=== PATIENT | female | born 1985 | race Caucasian/White ===

== ENCOUNTER → 2016-08-13 | Outpatient (CLI) | payer BC ==
[2016-08-13 09:07] LABS: ABSOLUTE EOSINOPHILS # (AUTO) 0.1 10^3/uL (0.0-0.6); ABSOLUTE MONOCYTES (AUTO) 0.4 10^3/uL (0.1-1.4); ABSOLUTE NEUT (AUTO) 3.8 10^3/uL (1.7-8.2); BASOPHILS % (AUTO) 0.6 % (0-2); EOSINOPHILS % (AUTO) 1.3 % (0-6); HEMATOCRIT 37.5 % (36.0-47.0); HGB HCT DIFFERENCE 1.5; LYMPHOCYTES % (AUTO) 31.5 % (13-45); MEAN CORPUSCULAR HEMOGLOBIN 28.5 pg (27.0-33.4); MEAN CORPUSCULAR HGB CONC 34.5 g/dL (32.0-36.0); MEAN CORPUSCULAR VOLUME 83 fl (80-97); RED BLOOD COUNT 4.55 10^6/uL (3.72-5.28); RED CELL DISTRIBUTION WIDTH 13.9 % (11.5-14.0); SEGMENTED NEUTROPHILS % (AUTO) 60.6 % (42-78); WHITE BLOOD COUNT 6.2 10^3/uL (4.0-10.5)
[2016-08-13 09:26] LABS: ALANINE AMINOTRANSFERASE 45 U/L (9-52); ALBUMIN 4.2 g/dL (3.5-5.0); ALKALINE PHOSPHATASE 82 U/L (38-126); ANION GAP 13 (5-19); ASPARTATE AMINO TRANSFERASE 29 U/L (14-36); BILIRUBIN,TOTAL 0.5 mg/dL (0.2-1.3); BLOOD UREA NITROGEN 11 mg/dL (7-20); CALCIUM 9.5 mg/dL (8.4-10.2); CARBON DIOXIDE 24 mmol/L (22-30); CHLORIDE 104 mmol/L (98-107); CREATININE RESULT 0.59 mg/dL (0.52-1.25); GLUCOSE 103 mg/dL (75-110); MAGNESIUM 1.7 mg/dL (1.6-2.3); PHOSPHORUS 3.5 mg/dL (2.5-4.5); POTASSIUM 4.2 mmol/L (3.6-5.0); SODIUM 141.1 mmol/L (137-145); TOTAL PROTEIN 7.4 g/dL (6.3-8.2)
[2016-08-13 10:06] LABS: THYROID STIMULATING HORMONE 2.19 uIU/mL (0.47-4.68)
[2016-08-14 07:11] LABS: VITAMIN D 25-HYDROXY 21.3 ng/mL (30.0-100.0)
[2016-08-14 13:54] LABS: ADRENOCORTICOTROPIC HORMONE 36.9 pg/mL (7.2-63.3)
== END ==
LOC: LAB 08:46
PROVIDERS: ATTEND Physician Assistant
DX: R53.83 Other fatigue (principal); R63.5 Abnormal weight gain
CPT/HCPCS: 36415; 80053; 82024; 82306; 82533; 82746; 83735; 84100; 84439; 84443; 85025

== ENCOUNTER → 2016-11-26 | Outpatient (CLI) | payer BC ==
[2016-11-28 23:36] LABS: AFP MOM 1.74 (.); AFP VALUE 61.4 ng/mL (.); MULTIPLE GESTATION No (.)
[2016-11-29 08:22] LABS: GEST AGE BASED ON EDD (.)
== END ==
LOC: LAB 13:24
PROVIDERS: ATTEND Midwife
DX: Z36 Encounter for antenatal screening of mother (principal)
CPT/HCPCS: 36415; 82105

== ENCOUNTER 2017-01-11 09:27 | Outpatient (CLI) | payer BC, MEDICAID ==
[2017-01-11 10:51] LABS: APPEARANCE,URINE SLIGHTLY-CLOUDY; BILIRUBIN,URINE NEGATIVE (NEGATIVE); GLUCOSE, URINE NEGATIVE (NEGATIVE); KETONES,URINE TRACE mg/dL (NEGATIVE); LEUKOCYTE ESTERASE,URINE NEGATIVE (NEGATIVE); NITRITE,URINE NEGATIVE (NEGATIVE); PROTEIN,URINE NEGATIVE (NEGATIVE); URINE SPECIFIC GRAVITY 1.018; UROBILINOGEN,URINE NEGATIVE mg/dL (<2.0)
[2017-01-11 11:02] LABS: URINE BARBITURATES SCREEN NEGATIVE; URINE METHADONE SCREEN NEGATIVE; URINE OPIATES LOW NEGATIVE; URINE PHENCYCLIDINE SCREEN NEGATIVE
== END 2017-01-11 10:25 | disposition home or self-care (01) ==
LOC: LC 09:27
PROVIDERS: ATTEND Specialist
DX: O99.512 Diseases of the respiratory system complicating pregnancy, second trimester (principal); J06.9 Acute upper respiratory infection, unspecified; Z3A.21 21 weeks gestation of pregnancy
CPT/HCPCS: 80307; 81001

== ENCOUNTER 2017-02-14 09:23 | Emergency (ER) | payer BC, MEDICAID ==
--- NOTE | 2017-02-14 09:45 | ER Document Report ---
ED Medical Screen (RME) - General Chief Complaint: OB Problem (>20wk) Stated Complaint: LEG SWELLING Time Seen by Provider: 02/14/17 09:43 Mode of Arrival: Ambulatory Information source: Patient Notes: This is a 31-year-old female 4 para 3, 30 weeks presents to the emergency room with palpitations, backache, dizziness and dyspnea on exertion. Patient does state she has a history of anxiety attacks but this feels different than previous attacks. Patient was referred to the emergency room by Dr. Yates because of concerns for pulmonary embolism. Denies any pain to the calves bilaterally TRAVEL OUTSIDE OF THE [place] IN LAST 30 DAYS: No - Related Data Allergies/Adverse Reactions: No Known Allergies Allergy (Verified 02/14/17 09:28) Past Medical History Renal/ Medical History: Denies: Hx Peritoneal Dialysis Past Surgical History: Reports: Hx Gynecologic Surgery - d&c - Immunizations Hx Diphtheria, Pertussis, Tetanus Vaccination: Yes Physical Exam - Vital signs Vitals: Temp Pulse Resp BP Pulse Ox 98.4 F 115 H 16 131/88 H 99 02/14/17 09:29 02/14/17 09:29 02/14/17 09:29 02/14/17 09:29 02/14/17 09:29 Course - Vital Signs Vital signs: Temp Pulse Resp BP Pulse Ox 98.4 F 115 H 16 131/88 H 99 02/14/17 09:29 02/14/17 09:29 02/14/17 09:29 02/14/17 09:29 02/14/17 09:29
[2017-02-14 10:10] LABS: ABSOLUTE EOSINOPHILS # (AUTO) 0.1 10^3/uL (0.0-0.6); ABSOLUTE MONOCYTES (AUTO) 0.8 10^3/uL (0.1-1.4); ABSOLUTE NEUT (AUTO) 6.5 10^3/uL (1.7-8.2); BASOPHILS % (AUTO) 0.2 % (0-2); EOSINOPHILS % (AUTO) 0.8 % (0-6); HEMATOCRIT 32.1 % (36.0-47.0); HEMOGLOBIN 10.6 g/dL (12.0-15.5); HGB HCT DIFFERENCE -0.3; LYMPHOCYTES % (AUTO) 21.8 % (13-45); MEAN CORPUSCULAR HEMOGLOBIN 26.2 pg (27.0-33.4); MEAN CORPUSCULAR HGB CONC 33.1 g/dL (32.0-36.0); MEAN CORPUSCULAR VOLUME 79 fl (80-97); MONOCYTES % (AUTO) 8.2 % (3-13); RED BLOOD COUNT 4.06 10^6/uL (3.72-5.28); RED CELL DISTRIBUTION WIDTH 13.6 % (11.5-14.0); WHITE BLOOD COUNT 9.4 10^3/uL (4.0-10.5)
--- NOTE | 2017-02-14 10:20 | ER Document Report ---
ED General - General Chief Complaint: OB Problem (>20wk) Stated Complaint: LEG SWELLING Time Seen by Provider: 02/14/17 09:43 Mode of Arrival: Ambulatory Information source: Patient, Dr. Office Notes: 31 yr old female who is 28 weeks presents with complaitns of anxiety heart racing and bvilateral edema. pt denies any sob, chest pain. denies hx of dvt or pe. TRAVEL OUTSIDE OF THE [place] IN LAST 30 DAYS: No - HPI Onset: Last week Onset/Duration: Persistent Quality of pain: No pain Severity: Mild Pain Level: Denies Associated symptoms: Shortness of breath Exacerbated by: Denies Relieved by: Denies Similar symptoms previously: No Recently seen / treated by doctor: Yes - Dr Santana sent patient in - Related Data Allergies/Adverse Reactions: No Known Allergies Allergy (Verified 02/14/17 09:28) Past Medical History - General Information source: Patient - Social History Smoking Status: Never Smoker Cigarette use (# per day): No Chew tobacco use (# tins/day): No Smoking Education Provided: No Family History: Reviewed & Not Pertinent Patient has suicidal ideation: No Patient has homicidal ideation: No Renal/ Medical History: Denies: Hx Peritoneal Dialysis Past Surgical History: Reports: Hx Gynecologic Surgery - d&c - Immunizations Hx Diphtheria, Pertussis, Tetanus Vaccination: Yes Review of Systems - Review of Systems Notes: REVIEW OF SYSTEMS: CONSTITUTIONAL : Denies fever, chills, or sweats. Denies recent illness. EENT: Denies eye, ear, throat, or mouth pain or symptoms. Denies nasal or sinus congestion or discharge. Denies throat, tongue, or mouth swelling or difficulty swallowing. CARDIOVASCULAR: Denies chest pain. Denies palpitations or racing or irregular heart beat. Denies ankle edema. RESPIRATORY: Denies cough, cold, or chest congestion. Denies shortness of breath, difficulty breathing, or wheezing. GASTROINTESTINAL: Denies abdominal pain or distention. Denies nausea, vomiting , or diarrhea. Denies blood in vomitus, stools, or per rectum. Denies black, tarry stools. Denies constipation. GENITOURINARY: Denies difficulty urinating, painful urination, burning, frequency, blood in urine, or discharge. FEMALE GENITOURINARY: Denies vaginal bleeding, heavy or abnormal periods, irregular periods. Denies vaginal discharge or odor. MUSCULOSKELETAL: Ankle swelling SKIN: Denies rash, lesions or sores. HEMATOLOGIC : Denies easy bruising or bleeding. LYMPHATIC: Denies swollen, enlarged glands. NEUROLOGICAL: Denies confusion or altered mental status. Denies passing out or loss of consciousness. Denies dizziness or lightheadedness. Denies headache. Denies weakness or paralysis or loss of use of either side. Denies problems with gait or speech. Denies sensory loss, numbness, or tingling. Denies seizures. PSYCHIATRIC: Denies anxiety or stress. Denies depression, suicidal ideation, or homicidal ideation. ALL OTHER SYSTEMS REVIEWED AND NEGATIVE. PHYSICAL EXAMINATION: GENERAL: Well-appearing, well-nourished and in no acute distress. HEAD: Atraumatic, normocephalic. EYES: Pupils equal round and reactive to light, extraocular movements intact, conjunctiva are normal. ENT: Nares patent, oropharynx clear without exudates. Moist mucous membranes. NECK: Normal range of motion, supple without lymphadenopathy LUNGS: Breath sounds clear to auscultation bilaterally and equal. No wheezes rales or rhonchi. HEART: Tachycardic ABDOMEN: Soft, nontender, nondistended abdomen. No guarding, no rebound. No masses appreciated. Female : deferred Musculoskeletal:+1 nonpitting edema bilateral ankles NEUROLOGICAL: Cranial nerves grossly intact. Normal speech, normal gait. Normal sensory, motor exams PSYCH: Anxious SKIN: Warm, Dry, normal turgor, no rashes or lesions noted. Dictation was performed using [employer] voice recognition software Physical Exam - Vital signs Vitals: Temp Pulse Resp BP Pulse Ox 98.4 F 115 H 16 131/88 H 99 02/14/17 09:29 02/14/17 09:29 02/14/17 09:29 02/14/17 09:29 02/14/17 09:29 Course - Re-evaluation Re-evalutation: 02/14/17 10:18 Patient appears to be tachycardic and having edema secondary to her , I have extremely low suspicion for a pulmonary emboli however her MANAGER MAIL sent the patient in to be evaluated for such therefore a CTA has been ordered, risks and benefits of this procedure have been explained to the patient 02/14/17 11:13 CTA was negative, I will discharge patient home at this time she is otherwise stable blood pressures not elevated very strict return precautions have been provided After performing a Medical Screening Examination, I estimate there is LOW risk for RUPTURED ESOPHAGUS, PNEUMOTHORAX, PULMONARY EMBOLISM, ACUTE CORONARY SYNDROME, OR THORACIC AORTIC DISSECTION, thus I consider the discharge disposition reasonable. I have reevaluated this patient multiple times and no significant life threatening changes are noted. The patient and I have discussed the diagnosis and risks, and we agree with discharging home with close follow-up. We also discussed returning to the Emergency Department immediately if new or worsening symptoms occur. We have discussed the symptoms which are most concerning (e.g., bloody sputum, worsening pain or shortness of breath) that necessitate immediate return. - Vital Signs Vital signs: Temp Pulse Resp BP Pulse Ox 98.4 F 115 H 16 131/88 H 99 02/14/17 09:29 02/14/17 09:29 02/14/17 09:29 02/14/17 09:29 02/14/17 09:29 - Laboratory Result Diagrams: 02/14/17 09:59 02/14/17 09:59 Laboratory results interpreted by me: 02/14/17 02/14/17 02/14/17 09:59 09:59 09:59 Hgb 10.6 L Hct 32.1 L MCV 79 L MCH 26.2 L Chloride 108 H Carbon Dioxide 19 L BUN 3 L Creatinine 0.44 L Free T4 0.72 L - Diagnostic Test Radiology reviewed: Image reviewed, Reports reviewed - no Acute abnormality Discharge - Discharge Clinical Impression: Tachycardia, Ankle edema in Condition: Stable Disposition: HOME, SELF-CARE Additional Instructions: Follow up with your physician tomorrow for further care or return to the ED IMMEDIATELY if symptoms worsen or new concerns occur. If you cannot afford to follow up with your primary care physician a list of low cost clinics have been provided at the end of your discharge papers as well. Referrals: SAMRA SANTANA MD [Primary Care Provider] - Follow up tomorrow
[2017-02-14 10:38] LABS: ALANINE AMINOTRANSFERASE 20 U/L (9-52); ALBUMIN 3.5 g/dL (3.5-5.0); ALKALINE PHOSPHATASE 105 U/L (38-126); ANION GAP 11 (5-19); ASPARTATE AMINO TRANSFERASE 15 U/L (14-36); BILIRUBIN,DIRECT 0.3 mg/dL (0.0-0.4); BILIRUBIN,TOTAL 0.3 mg/dL (0.2-1.3); BLOOD UREA NITROGEN 3 mg/dL (7-20); CALCIUM 8.6 mg/dL (8.4-10.2); CARBON DIOXIDE 19 mmol/L (22-30); CHLORIDE 108 mmol/L (98-107); CREATININE RESULT 0.44 mg/dL (0.52-1.25); GLUCOSE 78 mg/dL (75-110); POTASSIUM 4.1 mmol/L (3.6-5.0); SODIUM 137.6 mmol/L (137-145); TOTAL PROTEIN 6.8 g/dL (6.3-8.2)
--- NOTE | 2017-02-14 11:05 | RADIOLOGY REPORT (SQ) ---
EXAM DESCRIPTION: CTA CHEST COMPLETED DATE/TIME: 02/14/2017 10:45 am REASON FOR STUDY: tachy, , glover, r/o pe 28 weeks. Patient shielded. COMPARISON: None. TECHNIQUE: CT scan of the chest performed using helical scanning technique with dynamic intravenous contrast injection. Images reviewed with lung, soft tissue and bone windows. Reconstructed coronal and sagittal MPR images reviewed. Additional 3 dimensional post-processing performed to develop Maximal Intensity Projection images (GA P). All images stored on PACS. All CT scanners at this facility use dose modulation, iterative reconstruction, and/or weight based d osing when appropriate to reduce radiation dose to as low as reasonably achievable (ALARA). [facility]: Dose Right [facility]: CareDose [facility]: Dose Right [facility]: Teradose 4D [facility]: [employer] CONTRAST TYPE AND DOSE: contrast/concentration: Isovue 370.00 mg/ml; Total Contrast Delivered: 71.0 ml; Total Saline Delivered: 94.1 ml 71 mL Isovue 370 intravenously. RENAL FUNCTION: Not required for younger patients. RADIATION DOSE: Up-to-date CT equipment and radiation dose reduction techniques were employed. CTDIv ol: 13.2 - 19.2 mGy. DLP: 577 mGy-cm. . LIMITATIONS: None. FINDINGS: LUNGS AND PLEURA: No masses, infiltrates, pneumothorax. No pleural effusions, calcificati ons. AORTA AND GREAT VESSELS: No aneurysm or dissection. HEART: No pericardial effusion. PULMONARY ARTERIES: No emboli visualized in the main pulmonary arteries or the segmental branches. HILAR AND MEDIASTINAL STRUCTURES: No identified masses or abnormal nodes. HARDWARE: None in the chest. UPPER ABDOMEN: No significant findings. Limited exam. THYROID AND OTHER SOFT TISSUES: No masses. No adenopathy. BONES: No acute or significant finding. 3D MIPS: Confirm above findings. OTHER: No other significant finding. IMPRESSION: Nothing acute. No evidence for central pulmonary embolus by CT. TECHNICAL DOCUMENTATION: JOB ID: [id number] Quality ID # [id number]: Final reports with documentation of one or more dose reduction techniques (e.g., Au tomated exposure control, adjustment of the mA and/or kV according to patient size, use of iterative reconstruction technique) 2010 [employer]- All Rights Reserved
[2017-02-14 11:08] LABS: THYROID STIMULATING HORMONE 1.58 uIU/mL (0.47-4.68)
[2017-02-14 11:27] VITALS: BP 122/77
== END 2017-02-14 11:27 | disposition home or self-care (01) ==
LOC: ER 09:23
DX: O26.93 Pregnancy related conditions, unspecified, third trimester (principal); R00.0 Tachycardia, unspecified; O12.02 Gestational edema, second trimester; Z3A.28 28 weeks gestation of pregnancy
CPT/HCPCS: 36415; 71275; 80053; 84439; 84443; 85025; 99284

== ENCOUNTER → 2017-02-26 | Outpatient (CLI) | payer BC, MEDICAID | LOC: LAB 15:21 | PROVIDERS: ATTEND Midwife | DX: Z34.83 Encounter for supervision of other normal pregnancy, third trimester (principal) | CPT/HCPCS: 36415; 86592 ==

== ENCOUNTER 2017-04-02 12:00 | Outpatient (CLI) | payer BC, MEDICAID ==
[2017-04-02 12:58] LABS: APPEARANCE,URINE SLIGHTLY-CLOUDY; BILIRUBIN,URINE NEGATIVE (NEGATIVE); GLUCOSE, URINE NEGATIVE (NEGATIVE); KETONES,URINE 80 mg/dL (NEGATIVE); LEUKOCYTE ESTERASE,URINE NEGATIVE (NEGATIVE); NITRITE,URINE NEGATIVE (NEGATIVE); PROTEIN,URINE NEGATIVE (NEGATIVE); URINE SPECIFIC GRAVITY 1.009; UROBILINOGEN,URINE NEGATIVE mg/dL (<2.0)
[2017-04-02 13:23] LABS: URINE BARBITURATES SCREEN NEGATIVE; URINE METHADONE SCREEN NEGATIVE; URINE OPIATES LOW NEGATIVE; URINE PHENCYCLIDINE SCREEN NEGATIVE
== END 2017-04-02 13:08 | disposition home or self-care (01) ==
LOC: LC 12:00
PROVIDERS: ATTEND Specialist
PROC: 4A1HXCZ Monitoring of Products of Conception, Cardiac Rate, External Approach (ICD-10-PCS; principal; 2017-04-02)
DX: O26.893 Other specified pregnancy related conditions, third trimester (principal); Z3A.35 35 weeks gestation of pregnancy
CPT/HCPCS: 59025; 80307; 81001

== ENCOUNTER 2017-04-05 14:18 | Outpatient (CLI) | payer BC, MEDICAID | END 2017-04-05 15:38 | disposition home or self-care (01) | LOC: LC 14:18 | PROVIDERS: ATTEND Specialist | PROC: 4A1HXCZ Monitoring of Products of Conception, Cardiac Rate, External Approach (ICD-10-PCS; principal; 2017-04-05) | DX: O26.893 Other specified pregnancy related conditions, third trimester (principal); B02.9 Zoster without complications; Z3A.35 35 weeks gestation of pregnancy | CPT/HCPCS: 59025 ==

== ENCOUNTER → 2017-04-18 | Outpatient (CLI) | payer BC, MEDICAID ==
[2017-04-18 11:21] LABS: ABSOLUTE EOSINOPHILS # (AUTO) 0.1 10^3/uL (0.0-0.6); ABSOLUTE LYMPHOCYTES (AUTO) 1.9 10^3/uL (0.5-4.7); ABSOLUTE MONOCYTES (AUTO) 0.7 10^3/uL (0.1-1.4); ABSOLUTE NEUT (AUTO) 5.5 10^3/uL (1.7-8.2); BASOPHILS % (AUTO) 0.2 % (0-2); EOSINOPHILS % (AUTO) 0.7 % (0-6); HEMATOCRIT 33.5 % (36.0-47.0); HEMOGLOBIN 11.3 g/dL (12.0-15.5); HGB HCT DIFFERENCE 0.4; LYMPHOCYTES % (AUTO) 23.3 % (13-45); MEAN CORPUSCULAR HEMOGLOBIN 26.1 pg (27.0-33.4); MEAN CORPUSCULAR HGB CONC 33.6 g/dL (32.0-36.0); MEAN CORPUSCULAR VOLUME 78 fl (80-97); MONOCYTES % (AUTO) 8.6 % (3-13); RED BLOOD COUNT 4.31 10^6/uL (3.72-5.28); RED CELL DISTRIBUTION WIDTH 16.9 % (11.5-14.0); SEGMENTED NEUTROPHILS % (AUTO) 67.2 % (42-78); WHITE BLOOD COUNT 8.2 10^3/uL (4.0-10.5)
[2017-04-18 11:36] LABS: ALANINE AMINOTRANSFERASE 20 U/L (9-52); ALBUMIN 3.4 g/dL (3.5-5.0); ALKALINE PHOSPHATASE 159 U/L (38-126); ANION GAP 11 (5-19); ASPARTATE AMINO TRANSFERASE 16 U/L (14-36); BILIRUBIN,DIRECT 0.3 mg/dL (0.0-0.4); BILIRUBIN,TOTAL 0.3 mg/dL (0.2-1.3); BLOOD UREA NITROGEN 5 mg/dL (7-20); CALCIUM 9.4 mg/dL (8.4-10.2); CARBON DIOXIDE 22 mmol/L (22-30); CHLORIDE 105 mmol/L (98-107); CREATININE RESULT 0.43 mg/dL (0.52-1.25); GLUCOSE 91 mg/dL (75-110); LDH 485 U/L (313-618); SODIUM 137.8 mmol/L (137-145); TOTAL PROTEIN 6.2 g/dL (6.3-8.2); URIC ACID 3.4 mg/dL (2.5-6.2)
[2017-04-18 12:13] LABS: URINE PROTEIN 11.1 mg/dL (<12)
== END ==
LOC: OD 10:22
PROVIDERS: ATTEND Midwife
DX: O13.9 Gestational [pregnancy-induced] hypertension without significant proteinuria, unspecified trimester (principal)
CPT/HCPCS: 36415; 80053; 83615; 84156; 84550; 85025

== ENCOUNTER 2017-04-22 06:27 | Inpatient (IN) | payer BC, MEDICAID ==
[2017-04-22] MEDS ORDERED: OXYTOCIN/NORMAL SALINE 20,000 UNIT/1,000,000 ML RTUINJ IV PRN (06:37)
[2017-04-22] MEDS ORDERED: RINGERS SOLUTION,LACTATED 300 ML IV ONE (06:37)
[2017-04-22] MEDS ORDERED: RINGERS SOLUTION,LACTATED 1,000 ML IV PRN (06:37)
[2017-04-22] MEDS ORDERED: PENICILLIN G POTASSIUM 5,000,000 UNIT in DEXTROSE 5%-WATER 100 ML IV ONE (06:39)
[2017-04-22 07:03] LABS: ABSOLUTE EOSINOPHILS # (AUTO) 0.1 10^3/uL (0.0-0.6); ABSOLUTE LYMPHOCYTES (AUTO) 2.7 10^3/uL (0.5-4.7); ABSOLUTE MONOCYTES (AUTO) 0.8 10^3/uL (0.1-1.4); ABSOLUTE NEUT (AUTO) 4.7 10^3/uL (1.7-8.2); BASOPHILS % (AUTO) 0.5 % (0-2); EOSINOPHILS % (AUTO) 1.2 % (0-6); HEMATOCRIT 32.8 % (36.0-47.0); HEMOGLOBIN 10.9 g/dL (12.0-15.5); HGB HCT DIFFERENCE -0.1; LYMPHOCYTES % (AUTO) 32.5 % (13-45); MEAN CORPUSCULAR HEMOGLOBIN 25.7 pg (27.0-33.4); MEAN CORPUSCULAR HGB CONC 33.4 g/dL (32.0-36.0); MEAN CORPUSCULAR VOLUME 77 fl (80-97); MONOCYTES % (AUTO) 9.5 % (3-13); RED BLOOD COUNT 4.26 10^6/uL (3.72-5.28); SEGMENTED NEUTROPHILS % (AUTO) 56.3 % (42-78); WHITE BLOOD COUNT 8.3 10^3/uL (4.0-10.5)
[2017-04-22 07:04] LABS: AMORPHOUS SEDIMENT,URINE TRACE /HPF; APPEARANCE,URINE CLOUDY; BILIRUBIN,URINE NEGATIVE (NEGATIVE); GLUCOSE, URINE NEGATIVE (NEGATIVE); KETONES,URINE NEGATIVE (NEGATIVE); LEUKOCYTE ESTERASE,URINE MODERATE (NEGATIVE); NITRITE,URINE NEGATIVE (NEGATIVE); PROTEIN,URINE NEGATIVE (NEGATIVE); URINE SPECIFIC GRAVITY 1.013; UROBILINOGEN,URINE NEGATIVE mg/dL (<2.0)
[2017-04-22 07:14] LABS: URINE BARBITURATES SCREEN NEGATIVE; URINE METHADONE SCREEN NEGATIVE; URINE OPIATES LOW NEGATIVE; URINE PHENCYCLIDINE SCREEN NEGATIVE
[2017-04-22 07:15] LABS: ALANINE AMINOTRANSFERASE 16 U/L (9-52); ALBUMIN 3.2 g/dL (3.5-5.0); ALKALINE PHOSPHATASE 174 U/L (38-126); ANION GAP 11 (5-19); ASPARTATE AMINO TRANSFERASE 17 U/L (14-36); BILIRUBIN,DIRECT 0.3 mg/dL (0.0-0.4); BILIRUBIN,TOTAL 0.3 mg/dL (0.2-1.3); BLOOD UREA NITROGEN 5 mg/dL (7-20); CARBON DIOXIDE 20 mmol/L (22-30); CHLORIDE 106 mmol/L (98-107); CREATININE RESULT 0.43 mg/dL (0.52-1.25); GLUCOSE 112 mg/dL (75-110); LDH 461 U/L (313-618); POTASSIUM 3.7 mmol/L (3.6-5.0); SODIUM 136.6 mmol/L (137-145); TOTAL PROTEIN 5.9 g/dL (6.3-8.2); URIC ACID 3.6 mg/dL (2.5-6.2)
[2017-04-22] MEDS ORDERED: MISOPROSTOL 0.1 MG TABLET ONE (08:50)
[2017-04-22] MEDS: PENICILLIN G POTASSIUM 2,500,000 UNIT in DEXTROSE 5%-WATER 50 ML IV SCH ×3 (10:40→18:40)
[2017-04-22] MEDS ORDERED: PENICILLIN G-K 5 MILLION UNIT VIAL ONE ×2 (12:03→16:34)
--- NOTE | 2017-04-22 12:59 | L&D Progress Notes ---
PROGRESS NOTES Datetime Report Generated by CPN: 04/22/2017 12:58 PROGRESS NOTE Vital Signs : Reviewed Comment: Irregular uc's, Cat 1 strip, pt feeling contractions FETUS A FHR - Baseline: 140 Variability: Moderate 6-25bpm Accelerations: 15X15 SIGNATURE SIGNATURE: [id number] Assignment: Raman Trevino DO Signature: with User ID: [email or web address] : with User ID: [email or web address]
[2017-04-22] MEDS ORDERED: EPHEDRINE SULFATE INJ 50 MG/1 ML AMPULE ONE (14:11)
[2017-04-22] MEDS ORDERED: FENTANYL CITRATE INJ/PF 100 MCG/2 ML AMPUL ONE (14:11)
[2017-04-22] MEDS ORDERED: MISOPROSTOL 0.2 MG TABLET ONE (14:11)
[2017-04-22] MEDS ORDERED: PHENYLEPHRINE HCL INJ/PF 10 MG/1 ML SDV ONE (14:11)
[2017-04-22] MEDS ORDERED: OXYTOCIN/NORMAL SALINE 20 UNIT/1,000 ML RTUINJ ONE (14:12)
[2017-04-22] MEDS ORDERED: BUPIVACAINE HCL 0.25 % INJ/PF (2.5 MG/1 ML) 30 ML VIAL ONE (14:12)
[2017-04-22] MEDS ORDERED: FENTANYL/BUPIVACAINE/NS/PF 200 MCG/100 ML RTUINJ EPI ONE (14:12)
--- NOTE | 2017-04-22 16:08 | L&D Progress Notes ---
PROGRESS NOTES Datetime Report Generated by CPN: 04/22/2017 16:08 PROGRESS NOTE Impression: Reassuring Heart Rate Procedures: Artificial ROM; Sterile Vag Exam Plan: Induction Informed Consent Obtained: Vaginal Delivery Vital Signs : Reviewed; Within Normal Limits Comment: VE= 3-480/vtx/-1, arom clear fluid, irregular uc's comfortable with epidural FETUS A FHR - Baseline: 130 Variability: Moderate 6-25bpm Accelerations: 15X15 Decelerations: None FETUS C SIGNATURE: [id number] Assignment: Raman Trevino DO Signature: with User ID: [email or web address] : with User ID: [email or web address]
[2017-04-22] MEDS ORDERED: BENZOCAINE/MENTHOL AEROSOL SPRAY 56 ML TOP PRN (19:32)
[2017-04-22] MEDS ORDERED: PROMETHAZINE HCL INJ 25 MG/1 ML VIAL IV PRN (19:32)
[2017-04-22] MEDS ORDERED: PSEUDOEPHEDRINE HCL 30 MG TABLET PO PRN (19:32)
[2017-04-22] MEDS ORDERED: NA PHOS,M-B/NA PHOS,DI-BA (ADULT) 133 ML ENEMA PR PRN (19:32)
[2017-04-22] MEDS ORDERED: OXYTOCIN/NORMAL SALINE 20 UNIT/1,000 ML RTUINJ IV PRN (19:32)
[2017-04-22] MEDS ORDERED: PROMETHAZINE HCL 25 MG TABLET PO PRN (19:32)
[2017-04-22] MEDS ORDERED: DIPH/PERTUSS(ACELL)/TETANUS VAC/PF 0.5 ML SYR (>=10YO) IM PRN (19:32)
[2017-04-22] MEDS ORDERED: DIBUCAINE 1% OINTMENT 28 GM TP PRN (19:32)
[2017-04-22] MEDS ORDERED: ACETAMINOPHEN 650 MG SUPP.RECT PR PRN (19:32)
[2017-04-22] MEDS ORDERED: ZOLPIDEM TARTRATE 5 MG TABLET PO PRN (19:32)
[2017-04-22] MEDS ORDERED: ACETAMINOPHEN WITH CODEINE #3 TABLET PO PRN ×2 (19:32)
[2017-04-22] MEDS ORDERED: MAGNESIUM HYDROXIDE SUSP 30 ML UDCUP PO PRN (19:32)
[2017-04-22] MEDS ORDERED: GLYCERIN/WITCH HAZEL LEAF 1 EACH MED..PAD TP PRN (19:32)
[2017-04-22] MEDS ORDERED: PROMETHAZINE HCL 25 MG SUPP.RECT PR PRN (19:32)
[2017-04-22] MEDS ORDERED: MEASLES,MUMPS&RUBELLA VACC/PF 0.5 ML VIAL SUBCUT PRN (19:32)
[2017-04-22] MEDS ORDERED: DIPHENHYDRAMINE HCL 25 MG CAPSULE PO PRN (19:32)
--- NOTE | 2017-04-22 20:05 | Delivery Summary ---
Del Sum A-C Datetime Report Generated by CPN: 04/22/2017 20:04 DELIVERY PERSONNEL DELIVERY PERSONNEL: [id number] Delivery Doctor:: Raman Trevino, DO Labor and Delivery Nurse:: YOVANNY Sanchez Labor and Delivery Nurse:: Julianna Cavanaugh RN Marketing Strategy Manager/INSPECTOR SUBASSEMBLIES: Maia KwokAdaloralia, METAL MODEL BUILDER Marketing Strategy Manager/INSPECTOR SUBASSEMBLIES: Ashley Moise MATERNAL INFORMATION Delivery Anesthesia: Epidural Medications After Delivery: Pitocin Bolus-Please Comment; Pitocin Drip 20 Units/1000ml NSS Estimated Blood Loss (ml): 250 Maternal Complications: None Provider Comments: of viable male in VICTOR HUGO position Placenta delievered spontaneous and intact with 3v cord Fundus firm LABOR SUMMARY EDC: 05/09/2017 00:00 No. Babies in Womb: 1 Attempted: No Labor Anesthesia: Epidural LABOR INFORMATION Reason for Induction: Gestational Hypertension Onset of Labor: 04/22/2017 16:03 Complete Dilatation: 04/22/2017 18:12 Cervical Ripening Agents: Cytotec @ Oxytocin: Induction Group B Beta Strep: Positive Antibiotics # of Doses: 3 Antibiotics Time of Last Dose: 0742/1220/1645 Name of Antibiotic Given: PCN Steroids Given: None Reason Steroids Not Administered: Not Applicable MEMBRANES Membranes Rupture Method: Artificial Rupture of Membranes: 04/22/2017 16:03 Length of Rupture (hr): 2.25 Amniotic Fluid Color: Clear Amniotic Fluid Amount: Small STAGES OF LABOR Stage 1 hr: 2 Stage 1 min: 9 Stage 2 hr: 0 Stage 2 min: 6 Stage 3 hr: 0 Stage 3 min: 6 Total Time in Labor hr: 2 Total Time in Labor min: 21 VAGINAL DELIVERY Episiotomy: None Laceration Extension: Second Degree Laceration Type: Periurethral Laceration Repair: Yes Laceration Repair Note: repaired with 3-0 chromic in usual fashion with good hemostasis Sponge Count Correct: N/A Sharps Count Correct: N/A CSECTION DELIVERY Primary Indication: N/A Secondary Indication: N/A CSection Incidence: N/A Labor: N/A Elective: N/A CSection Incision: N/A BABY A INFORMATION Infant Delivery Date/Time: 04/22/2017 18:18 Method of Delivery: Vaginal Born in Route : No : N/A Forceps: N/A Vacuum Extraction: N/A Shoulder Dystocia : No PRESENTATION/POSITION BABY A Presentation: Cephalic Cephalic Presentation: Vertex Vertex Position: Left Occipital Anterior Breech Presentation: N/A PLACENTA INFORMATION BABY A Placenta Delivery Time : 04/22/2017 18:24 Placenta Method of Delivery: Spontaneous Placenta Status: Delivered SCORES BABY A Heart Rate 1 min: >100 bpm Resp Effort 1 min: Good Cry Reflex Irritability 1 min: Cough or Sneeze or Pulls Away Muscle Tone 1 min: Active Motion Color 1 min: Body [place], Extremities Blue Resuscitation Effort 1 min: Tactile Stimulation SCORE 1 MIN: 9 Heart Rate 5 min: >100 bpm Resp Effort 5 min: Good Cry Reflex Irritability 5 min: Cough or Sneeze or Pulls Away Muscle Tone 5 min: Active Motion Color 5 min: Body [place], Extremities Blue Resuscitation Effort 5 min: Tactile Stimulation SCORE 5 MIN: 9 INFORMATION BABY A Gestational Age at Delivery: 37.4 Gestational Status: Early Term- 37- 38.6 Weeks Infant Outcome : Liveborn Infant Condition : Stable Infant Sex: Male IDENTIFICATION BABY A Infant Verification Date/Time: 04/22/2017 18:38 ID Band Number: [id number] Mother's Name Verified: Yes RN Verifying : K Nikos RNC/D Rosye WEIGHT/LENGTH BABY A Birthweight (gm): 3190 Weight (lb): 7 Infant Weight (oz): 1 Infant Length (in): 18.50 Infant Length (cm): 46.99 CORD INFORMATION BABY A No. Cord Vessels: 3 Nuchal Cord : N/A Cord Blood Taken: Yes-For Eval (Mom's Blood Type - or O+) Suction: None ASSESSMENT BABY A Complications: None Physical Findings at Delivery: Within Normal Limits Respirations: Appears Normal Skin to Skin: Yes Skin to Skin Time (min): 45 Customer Services Manager/ALS Called : No Care By: K Nikos RNC Transferred To: Remains with Mother BABY B INFORMATION : N/A SIGNATURES Signature: with User ID: [email or web address]
[2017-04-22] MEDS ORDERED: IBUPROFEN 800 MG TABLET ONE (20:14)
[2017-04-22] MEDS: IBUPROFEN 800 MG TABLET PO SCH (20:20)
--- NOTE | 2017-04-22 20:36 | Admission Physical ---
Datetime Report Generated by CPN: 04/22/2017 20:36 CURRENT ADMISSION Hx Assessment: The History has been Reviewed and is Current Indication for Induction: Gestational HTN Admit Plan: Admit to Unit; Initiate Labor Induction Protocol ALLERGIES Medication Allergies: No Medication Allergies: No Known Allergies (04/22/2017) Medication Allergies: No Known Allergies (04/02/2017) Medication Allergies: No Known Allergies (02/14/2017) Medication Allergies: No Known Allergies (05/30/2015) Latex: No Latex Allergies Food Allergies: none Environmental Allergies: none OBSTETRICAL HISTORY EDC: 05/09/2017 00:00 : 6 Para: 3 Term: 3 : 0 SAB: 1 IAB: 1 Ectopic: 0 Livin Cesareans: 0 VBACs: 0 Multiple Births: 0 Gestational Diabetes: No Rh Sensitization: No Incompetent Cervix: No PACO: No Infertility: No ART Treatment: No Uterine Anomaly: No IUGR: No Hx Previous C/S: No Macrosomia: No Hx Loss/Stillborn: No PIH: No Hx : No Placenta Previa/Abruption: No Depression/PP Depression: No PTL/PROM: No Post Hemorrhage: No Current Procedures: Ultrasound; NST Obstetrical History Comments: - 2004 SAB G2- 01/2007 @ 36wks 6lbs 7oz female G3- 10/2008 EAB G402/2010 @ 38wks 6lbs 9oz female G5- 10/2013 @ 38wks 9lbs 0oz male G6- Current SEE RECORDS Alcohol: No Marijuana : No Cocaine: No Other Illicit Drugs: No Cigarettes: Former Smoker. [id number] MEDICAL HISTORY Diabetes: No Blood Transfusion: No Pulmonary Disease (Asthma, TB): No Breast Disease: No Hypertension: Yes Centrifugal Separator Surgery: No Heart Disease: No Hosp/Surgery: Yes Autoimmune Disorder: No Anesthetic Complications: No Kidney Disease: No Abnormal Pap Smear: Yes Neuro/Epilepsy: No Psychiatric Disorders: Yes Other Medical Diseases: Yes Hepatitis/Liver Disease: No Significant Family History: No Varicosities/Phlebitis: No Trauma/Violence : No Thyroid Dysfunction: No Medical History Comments: Depression-on Zoloft; Childbirth x 3; Shingles; GHTN; Abn pap-ASCUS INFECTIOUS HISTORY Gonorrhea: No Genital Herpes: No Chlamydia: No Tuberculosis: No Syphilis: No Hepatitis: No HIV/AIDS Exposure: No Rash or Viral Illness: No HPV: Yes Infectious History Comments: Hx Abnormal pap-ASCUS 2012 PHYSICAL EXAM General: Normal HEENT: Normal Neurologic: Normal Thyroid: Normal Heart: Normal Lungs: Normal Breast: Deferred Back: Normal Abdomen: Normal Genitourinary Exam: Normal Extremities: Normal DTRs: Normal Pelvic Type: Adequate Physical Exam Comments: GBS neg Hx Depression Hx of large baby 9 lbs Shingles 04-09-17 G 6 P 3 Vital Signs: Reviewed FETUS A Monitoring: External US FHR- Baseline: 155 Variability: Moderate 6-25bpm Accelerations: 15X15 Decelerations: None Admit Comment: 38 weeks, IOL for hypertension, Cat [address] Trevino was aware of admission and will start cytotec After cytotec pt progressed to 3-4/ thick -1 anticipate PLANS FOR LABOR AND DELIVERY Labor and Delivery: None Pain Management: Epidural Feeding Preference: Both Benefit of Breast Feed Discussed: Yes Circumcision: Yes INFORMED CONSENT Informed Consent Obtained: Vaginal Delivery Assignment: Raman Trevino DO Signature: with User ID: [email or web address] : with User ID: [email or web address]
[2017-04-23] MEDS: FAMOTIDINE 20 MG TABLET PO SCH ×3 (02:40→21:37)
[2017-04-23] MEDS: IBUPROFEN 800 MG TABLET PO SCH ×3 (06:08→21:31)
[2017-04-23 07:34] LABS: HEMATOCRIT 34.4 % (36.0-47.0); HEMOGLOBIN 11.1 g/dL (12.0-15.5); HGB HCT DIFFERENCE -1.1; MEAN CORPUSCULAR HEMOGLOBIN 25.2 pg (27.0-33.4); MEAN CORPUSCULAR HGB CONC 32.2 g/dL (32.0-36.0); MEAN CORPUSCULAR VOLUME 78 fl (80-97); RED BLOOD COUNT 4.39 10^6/uL (3.72-5.28); RED CELL DISTRIBUTION WIDTH 17.5 % (11.5-14.0); WHITE BLOOD COUNT 10.1 10^3/uL (4.0-10.5)
[2017-04-23] MEDS: PRENATAL VITAMIN W-O CA NO5/FE FUMARATE/FA CAPSULE PO SCH (09:15)
[2017-04-23] MEDS: SENNOSIDES/DOCUSATE 8.6-50 MG 1 EACH TABLET PO SCH (09:15)
[2017-04-23] MEDS: FERROUS SULFATE 325 MG TABLET PO SCH ×2 (09:16→17:51)
[2017-04-23] MEDS: DOCUSATE SODIUM 100 MG CAPSULE PO SCH ×2 (09:16→17:51)
--- NOTE | 2017-04-23 13:00 | PDOC PROGRESS REPORT ---
Subjective-OB Subjective: Post Delivery Day: 1 31 year old. Denies any needs at this time, states lochia is stable, voiding without difficulty, pain well controlled Physical Exam (OB) Vital Signs: Temp Pulse Resp BP Pulse Ox 97.9 F 72 15 118/84 100 04/23/17 07:39 04/23/17 07:39 04/23/17 07:39 04/23/17 07:39 04/23/17 07:39 Intake & Output 04/22/17 04/23/17 04/24/17 06:59 06:59 06:59 Weight 76.6 kg - PIH/Pre-Eclampsia DTR's: 2 + - Lochia Lochia Amount: Scant < 10 ml Lochia Color: Rubra/Red - Abdomen Description: Soft Hernia Present: No Fundal Description: Firm, Midline Fundal Height: u/u - u/2 Objective-Diagnostic Laboratory: 04/23/17 07:11 04/22/17 06:52 04/23/17 07:11 WBC 10.1 RBC 4.39 Hgb 11.1 L Hct 34.4 L MCV 78 L MCH 25.2 L MCHC 32.2 RDW 17.5 H Plt Count 153 Assessment and Plan(PN) - Assessment and Plan (1) Vaginal delivery Is this a current diagnosis for this admission?: Yes Plan: routine pp care - Time Spent with Patient Time with patient: Less than 15 minutes Critical Time spent with patient: Less than 15 minutes Medications reviewed and adjusted accordingly: Yes - Disposition Anticipated Discharge: Home Within: within 24 hours
[2017-04-24] MEDS: IBUPROFEN 800 MG TABLET PO SCH ×2 (06:33→14:08)
[2017-04-24] MEDS: PRENATAL VITAMIN W-O CA NO5/FE FUMARATE/FA CAPSULE PO SCH (09:53)
[2017-04-24] MEDS: FERROUS SULFATE 325 MG TABLET PO SCH ×2 (09:54→18:00)
[2017-04-24] MEDS: DOCUSATE SODIUM 100 MG CAPSULE PO SCH ×2 (09:54→18:00)
[2017-04-24] MEDS: FAMOTIDINE 20 MG TABLET PO SCH (09:54)
[2017-04-24] MEDS: SENNOSIDES/DOCUSATE 8.6-50 MG 1 EACH TABLET PO SCH (09:55)
--- NOTE | 2017-04-24 11:22 | PDOC PROGRESS REPORT ---
Subjective-OB Subjective: Post Delivery Day: 31 year old. Denies any needs at this time. Ready to go home after baby is circumcised. Physical Exam (OB) Vital Signs: Temp Pulse Resp BP Pulse Ox 98.3 F 79 16 124/89 H 99 04/24/17 08:08 04/24/17 08:08 04/24/17 08:08 04/24/17 08:08 04/24/17 08:08 - PIH/Pre-Eclampsia DTR's: 2 + Headache: Absent Epigastric Pain: No Visual Changes: No - Lochia Lochia Amount: Scant < 10 ml Lochia Color: Rubra/Red - Abdomen Description: Soft Hernia Present: No Bowel Sounds: Normoactive Flatus Presence: Present Stool: Yes Fundal Description: Firm, Midline Fundal Height: u/u - u/2 Objective-Diagnostic Laboratory: 04/23/17 07:11 04/22/17 06:52 Assessment and Plan(PN) - Time Spent with Patient Medications reviewed and adjusted accordingly: Yes - Disposition Anticipated Discharge: Home
--- NOTE | 2017-04-24 11:29 | PDOC DISCHARGE SUMMARY ---
Final Diagnosis Discharge Date: 04/24/17 - Final Diagnosis (1) Gestational HTN Is this a current diagnosis for this admission?: Yes (2) History of depression Is this a current diagnosis for this admission?: Yes (3) History of shoulder dystocia in prior Is this a current diagnosis for this admission?: Yes (4) Hx shingles antepartum Is this a current diagnosis for this admission?: Yes (5) Positive GBS test Is this a current diagnosis for this admission?: Yes (6) Is this a current diagnosis for this admission?: Yes (7) Vaginal delivery Is this a current diagnosis for this admission?: Yes Discharge Data - Discharge Medication Home Medications: Sertraline HCl [Zoloft 50 mg Tablet] 100 mg PO DAILY 01/11/17 Ibuprofen [Motrin 800 mg Tablet] 800 mg PO Q8 #30 tablet 04/24/17 Gestational Age: 37,4 wks Reason(s) for Admission: Induction of Labor, PIH Procedures: NST, Ultrasound Intrapartum Procedure(s): Spontaneous Vaginal Delivery Complication(s): Laceration-Periurethral - [place] Data Baby 1 Male at 1 minute: 9 at 5 minutes: 9 Weight: 3.203 kg Home with Mother: Yes Complications: No - Diagnosis Test Laboratory: Temp Pulse Resp BP Pulse Ox 98.3 F 79 16 124/89 H 99 04/24/17 08:08 04/24/17 08:08 04/24/17 08:08 04/24/17 08:08 04/24/17 08:08 04/22/17 04/22/17 04/23/17 06:35 06:52 07:11 RBC 4.26 4.39 Hgb 10.9 L 11.1 L Hct 32.8 L 34.4 L Urine Opiates Screen NEGATIVE - Discharge information/Instructions Discharge Activity: Activity As Tolerated, Balance Activity w/Rest, Pelvic Rest , Slowly Increase Activity, No tub bath Discharge Diet: Regular Disposition: HOME, SELF-CARE Follow up with: [facility] in: 1, Weeks
[2017-04-24 15:54] VITALS: BP 141/95
== END 2017-04-24 21:55 | disposition home or self-care (01) | DRG 775 ==
LOC: LR 06:27 → 2S 20:21
PROVIDERS: ADMIT Specialist; ATTEND Specialist
PROC: 10E0XZZ Delivery of Products of Conception, External Approach (ICD-10-PCS; principal; 2017-04-22)
PROC: 0UQMXZZ Repair Vulva, External Approach (ICD-10-PCS; 2017-04-22)
PROC: 10907ZC Drainage of Amniotic Fluid, Therapeutic from Products of Conception, Via Natural or Artificial Opening (ICD-10-PCS; 2017-04-22)
PROC: 3E033VJ Introduction of Other Hormone into Peripheral Vein, Percutaneous Approach (ICD-10-PCS; 2017-04-22)
PROC: 4A1HXCZ Monitoring of Products of Conception, Cardiac Rate, External Approach (ICD-10-PCS; 2017-04-22)
DX: O13.4 Gestational [pregnancy-induced] hypertension without significant proteinuria, complicating childbirth (principal); O99.344 Other mental disorders complicating childbirth; F32.9 Major depressive disorder, single episode, unspecified; O66.0 Obstructed labor due to shoulder dystocia; O99.824 Streptococcus B carrier state complicating childbirth; O71.82 Other specified trauma to perineum and vulva; Z87.891 Personal history of nicotine dependence; Z3A.37 37 weeks gestation of pregnancy; Z37.0 Single live birth
CPT/HCPCS: 36415; 80053; 80307; 81001; 83615; 84550; 85025; 85027; 86592; 86850; 86900; 86901; 94760; J2370; J2540; J2590; J3010; J3490

== ENCOUNTER 2017-07-07 07:29 | Emergency (ER) | payer BC, MEDICAID ==
--- NOTE | 2017-07-07 07:57 | ER Document Report ---
ED Respiratory Problem - General Chief Complaint: Breathing Difficulty Stated Complaint: DIFFICULTY BREATHING Time Seen by Provider: 07/07/17 07:46 Notes: The patient is a 31 yo female, PMHx HTN, presents with 2 weeks of a cough and chest congestion. She was started on an albuterol inhaler and steroids 2 days ago and took 60 mg of prednisone this morning. She denies fevers, sinus congestion, chest pain, leg swelling, hemoptysis, OCP use, recent travel or abdominal pain. TRAVEL OUTSIDE OF THE [place] IN LAST 30 DAYS: No - Related Data Allergies/Adverse Reactions: No Known Allergies Allergy (Verified 04/22/17 06:40) Past Medical History - General Information source: Patient - Social History Smoking Status: Former Smoker Family History: Reviewed & Not Pertinent Renal/ Medical History: Denies: Hx Peritoneal Dialysis Past Surgical History: Reports: Hx Gynecologic Surgery - d&c - Immunizations Hx Diphtheria, Pertussis, Tetanus Vaccination: Yes Review of Systems - Review of Systems Notes: REVIEW OF SYSTEMS: CONSTITUTIONAL: -fevers, -chills EENT: -eye pain, -difficulty swallowing, -nasal congestion CARDIOVASCULAR:-chest pain, -syncope. RESPIRATORY: +cough, +SOB GASTROINTESTINAL: -abdominal pain, - nausea, -vomiting, -diarrhea GENITOURINARY: -dysuria, -hematuria MUSCULOSKELETAL: -back pain, -neck pain SKIN: -rash or skin lesions. HEMATOLOGIC: -easy bruising or bleeding. LYMPHATIC: -swollen, enlarged glands. NEUROLOGICAL: -altered mental status or loss of consciousness, -headache, - neurologic symptoms PSYCHIATRIC: -anxiety, -depression. ALL OTHER SYSTEMS REVIEWED AND NEGATIVE. Physical Exam - Vital signs Vitals: Temp Pulse Resp BP Pulse Ox 98.3 F 127 H 22 H 154/118 H 99 07/07/17 07:36 07/07/17 07:36 07/07/17 07:36 07/07/17 07:36 07/07/17 07:36 - Notes Notes: PHYSICAL EXAMINATION: GENERAL: Well-appearing, well-nourished and in no acute distress. HEAD: Atraumatic, normocephalic. EYES: Pupils equal round and reactive to light, extraocular movements intact, sclera anicteric, conjunctiva are normal. ENT: nares patent, oropharynx clear without exudates. Moist mucous membranes. NECK: Normal range of motion, supple without lymphadenopathy LUNGS: Diffuse rhonchi and end-expiratory wheezing. HEART: Tachycardia, regular rhythm. ABDOMEN: Soft, nontender, normoactive bowel sounds. No guarding, no rebound. No masses appreciated. EXTREMITIES: Normal range of motion, no pitting or edema. No cyanosis. NEUROLOGICAL: Cranial nerves grossly intact. Normal speech, normal gait. Normal sensory and motor exams. PSYCH: Normal mood, normal affect. SKIN: Warm, Dry, normal turgor, no rashes or lesions noted. Course - Re-evaluation Re-evalutation: Patient presents with wheezing and rhonchi that improved with DuoNebs. She took 60 mg of prednisone this morning just prior to arrival. Chest x-ray does not show a focal infiltrate and she does not have a fever. Patient ambulated without hypoxia. Her initial tachycardia improved, but is still present upon discharge due to the multiple beta agonists she received. Considered PE, patient is more typical for bronchitis and she does not have any risk factors for PE. 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 Flu sent and it was negative. Given very strict return precautions and she understands. - Vital Signs Vital signs: Temp Pulse Resp BP Pulse Ox 98.3 F 127 H 22 H 154/118 H 97 07/07/17 07:36 07/07/17 07:36 07/07/17 07:36 07/07/17 07:36 07/07/17 09:00 - Diagnostic Test Radiology reviewed: Image reviewed, Reports reviewed Radiology results interpreted by me: CXR: NAD Discharge - Discharge Clinical Impression: Bronchitis Condition: Stable Disposition: HOME, SELF-CARE Additional Instructions: BRONCHITIS WITH BRONCHOSPASM (WHEEZING): You have bronchitis with bronchospasm (wheezing). Sometimes people develop wheezing with a chest cold. This occurs either because of an underlying tendency toward asthma or because the virus itself irritates the bronchial tubes. This irritation causes cough, shortness of breath, and wheezing. Emergency treatment of bronchospasm may include adrenaline shots or bronchodilator aerosol. You may feel lightheaded and have a rapid pulse for an hour or two. Rest and get plenty of fluids. At home, we'll treat you with a bronchodilator inhaler. Corticosteroids may be required for some patients. Until you recover, avoid chemical fumes, dusts, pollens, and exercising in very cold or dry air. If you smoke, stop now! Most cases of bronchitis get better without antibiotics. We prescribe antibiotics when we believe bacteria are damaging your airways, or if there's high risk the bronchitis will worsen into pneumonia. Increase your fluid intake. A cool mist humidifier may make your lungs more comfortable. An expectorant (cough medicine that loosens phlegm) can help. Repeated episodes of bronchitis and bronchospasm may result in lung damage -- for example, chronic bronchitis, recurrent pneumonias, or emphysema. If you develop a fever, increased wheezing, chest pain, or severe shortness of breath, you should contact the doctor immediately. INHALED BRONCHODILATORS: You have received a treatment of and/or prescription for an inhaled bronchodilator -- a medication which stimulates the airways in the lung to dilate. This improves the flow of air in asthma, bronchitis, and emphysema. These medicines have some similarity to adrenaline, and can cause similar side effects: shakiness, racing heart, and a sense of nervousness. These side effects decrease with time. Contact your doctor if these side effects are severe. Do not over-use the medicine. Too-frequent use of the inhaler may make it ineffective. Call your doctor if the inhaler is not controlling your symptoms at the prescribed doses. STEROID MEDICATION: You have been given an injection of or oral medicine of the cortisone/ steroid class. This medication is used to control inflammation or allergy. Carlos t is usually only given for a short period of time, until the acute process subsides. There are usually no side effects from short-term use of cortisone-like medications. Some persons feel an increased sense of well-being and are not sleepy at bedtime. Long-term use of cortisone medications is best avoided, unless required for a severe condition. If your condition does not remit, or relapses after the course of corticosteroid medication, you should consult your physician. USE OF ACETAMINOPHEN (Tylenol): Acetaminophen may be taken for pain relief or fever control. It's much safer than aspirin, offering a wider range of "safe" dosages. It is safe during . Some brand names are Tylenol, Panadol, Datril, Anacin 3, Tempra, and Liquiprin. Acetaminophen can be repeated every four hours. The following are maximum recommended dosages: >89 pounds or adults 650 mg to 900 mg Acetaminophen can be repeated every four hours. Maximum dose not to exceed 4000 mg a day. SMOKING: If you smoke, you should stop smoking. The tar and chemicals in cigarette smoke are harmful. Smoking has been shown to cause: emphysema chronic bronchitis lung cancer mouth and throat cancer stomach and pancreas cancer premature aging defects In addition, smoking increases ear and lung infections in children of smokers. FOLLOW-UP CARE: If you have been referred to a physician for follow-up care, call the physician s office for an appointment as you were instructed or within the next two days. If you experience worsening or a significant change in your symptoms, notify the physician immediately or return to the Emergency Department at any time for re-evaluation. Forms: Elevated Blood Pressure Referrals: RICK AVALOS PA-C [Primary Care Provider] - Follow up as needed
[2017-07-07] MEDS ORDERED: IPRATROPIUM/ALBUTEROL 0.5-2.5 MG/3 ML AMPUL NEB ONE (08:02)
--- NOTE | 2017-07-07 08:25 | RADIOLOGY REPORT (SQ) ---
EXAM DESCRIPTION: CHEST PA/LAT COMPLETED DATE/TIME: 07/07/2017 8:14 am REASON FOR STUDY: cough, congestion COMPARISON: 2013. TECHNIQUE: Frontal and lateral radiographic views of the chest acquired. NUMBER OF VIEWS: Two view. LIMITATIONS: None. FINDINGS: LUNGS AND PLEURA: No opacities, masses or pneumothorax. No pleural effusion. MEDIASTINUM AND HILAR STRUCTURES: No masses or contour abnormalities. HEART AND VASCULAR STRUCTURES: Heart normal size. No evidence for failure. BONES: No acute findings. HARDWARE: None in the chest. OTHER: No other significant finding. IMPRESSION: NO SIGNIFICANT RADIOGRAPHIC FINDING IN THE CHEST. TECHNICAL DOCUMENTATION: JOB ID: [id number] [employer] All Rights Reserved
[2017-07-07 10:39] VITALS: BP 139/83
== END 2017-07-07 10:39 | disposition home or self-care (01) ==
LOC: ER 07:29
DX: J40 Bronchitis, not specified as acute or chronic (principal); R06.02 Shortness of breath; I10 Essential (primary) hypertension; R05 Cough; R09.89 Other specified symptoms and signs involving the circulatory and respiratory systems; Z79.899 Other long term (current) drug therapy; Z87.891 Personal history of nicotine dependence
CPT/HCPCS: 94640; 99283; 87804; 71020; J7620

== ENCOUNTER → 2017-07-25 | Outpatient (CLI) | payer SELFPAY ==
[2017-07-25 08:44] LABS: HEMATOCRIT 39.6 % (36.0-47.0); HEMOGLOBIN 13.5 g/dL (12.0-15.5); HGB HCT DIFFERENCE 0.9; MEAN CORPUSCULAR HEMOGLOBIN 27.9 pg (27.0-33.4); MEAN CORPUSCULAR HGB CONC 34.2 g/dL (32.0-36.0); MEAN CORPUSCULAR VOLUME 82 fl (80-97); RED BLOOD COUNT 4.86 10^6/uL (3.72-5.28); RED CELL DISTRIBUTION WIDTH 16.8 % (11.5-14.0); WHITE BLOOD COUNT 7.1 10^3/uL (4.0-10.5)
[2017-07-25 09:12] LABS: ALANINE AMINOTRANSFERASE 29 U/L (9-52); ALBUMIN 4.6 g/dL (3.5-5.0); ALKALINE PHOSPHATASE 87 U/L (38-126); ANION GAP 13 (5-19); ASPARTATE AMINO TRANSFERASE 20 U/L (14-36); BILIRUBIN,DIRECT 0.2 mg/dL (0.0-0.4); BILIRUBIN,TOTAL 0.3 mg/dL (0.2-1.3); BLOOD UREA NITROGEN 12 mg/dL (7-20); CALCIUM 9.6 mg/dL (8.4-10.2); CARBON DIOXIDE 24 mmol/L (22-30); CHLORIDE 102 mmol/L (98-107); CHOLESTEROL 290.42 mg/dL (0-200); GLUCOSE 99 mg/dL (75-110); POTASSIUM 4.5 mmol/L (3.6-5.0); SODIUM 139.2 mmol/L (137-145); TRIGLYCERIDES 343 mg/dL (<150)
[2017-07-25 09:23] LABS: DIRECT LDL 167 mg/dL (<100)
[2017-07-25 09:28] LABS: VLDL CHOLESTEROL 68.6 mg/dL (10-31)
[2017-07-25 09:29] LABS: Direct HDL 118 mg/dL (>40)
[2017-07-25 09:42] LABS: THYROID STIMULATING HORMONE 1.4 uIU/mL (0.47-4.68)
[2017-07-27 00:38] LABS: INSULIN 10.6 uIU/mL (2.6-24.9)
== END ==
LOC: LAB 05:02
PROVIDERS: ATTEND Family Medicine
DX: E78.5 Hyperlipidemia, unspecified (principal); I10 Essential (primary) hypertension; R53.83 Other fatigue; R63.5 Abnormal weight gain; R73.9 Hyperglycemia, unspecified
CPT/HCPCS: 36415; 80053; 80061; 83036; 83525; 84439; 84443; 84480; 85027

== ENCOUNTER → 2017-10-06 | Outpatient (CLI) | payer BC ==
[2017-10-06 12:52] LABS: HEMATOCRIT 40.1 % (36.0-47.0); HEMOGLOBIN 13.7 g/dL (12.0-15.5); MEAN CORPUSCULAR HEMOGLOBIN 28.1 pg (27.0-33.4); MEAN CORPUSCULAR HGB CONC 34.2 g/dL (32.0-36.0); MEAN CORPUSCULAR VOLUME 82 fl (80-97); PLATELET COUNT 370 10^3/uL (150-450); RED BLOOD COUNT 4.89 10^6/uL (3.72-5.28); RED CELL DISTRIBUTION WIDTH 13.8 % (11.5-14.0); WHITE BLOOD COUNT 10.8 10^3/uL (4.0-10.5)
[2017-10-06 13:13] LABS: ANION GAP 18 (5-19); BLOOD UREA NITROGEN 14 mg/dL (7-20); CALCIUM 9.7 mg/dL (8.4-10.2); CARBON DIOXIDE 22 mmol/L (22-30); CHLORIDE 98 mmol/L (98-107); GLUCOSE 89 mg/dL (75-110); SODIUM 138.2 mmol/L (137-145)
[2017-10-06 13:31] LABS: FREE T4 (FREE THYROXINE) 0.95 ng/dL (0.78-2.19)
[2017-10-06 13:45] LABS: THYROID STIMULATING HORMONE 1.56 uIU/mL (0.47-4.68)
[2017-10-07 07:17] LABS: TRIIODOTHYRONINE (T3) 167 ng/dL (71-180)
== END ==
LOC: LAB 07:51
PROVIDERS: ATTEND Family Medicine
DX: H66.003 Acute suppurative otitis media without spontaneous rupture of ear drum, bilateral (principal); I10 Essential (primary) hypertension; R11.0 Nausea
CPT/HCPCS: 36415; 80048; 84439; 84443; 84480; 85027

== ENCOUNTER → 2017-11-13 | Outpatient (CLI) | payer BC ==
--- NOTE | 2017-11-13 10:15 | RADIOLOGY REPORT (SQ) ---
EXAM DESCRIPTION: MANDIBLE 4 VIEWS OR MORE COMPLETED DATE/TIME: 11/13/2017 9:40 am REASON FOR STUDY: ARTHRALGIA OF RIGHT TEMPOROMANDIBULAR JOINT M26.621 ARTHRALGIA OF RIGHT TEMPOROM ANDIBULAR JOINT COMPARISON: None. NUMBER OF VIEWS: Four view. TECHNIQUE: Images of the mandible acquired. AP, Tamia's, angled right, angled left mandible images. LIMITATIONS: None. FINDINGS: MANDIBLE: No acute fracture. No malalignment of the right or left temporomandibular joint s. No bony joint space narrowing. ORBITS: No fracture. No foreign body. SINUSES: No mucosal thickening. No air fluid levels. FACIAL BONES: No fracture. OTHER: No other significant finding. IMPRESSION: NO ACUTE FRACTURE OR MALALIGNMENT. If there is high clinical suspicion of displaced temporomandibular joint meniscus, consider MRI for bo khan TECHNICAL DOCUMENTATION: JOB ID: [id number] [employer]- All Rights Reserved Reading location - IP/workstation name: [facility]
== END ==
LOC: RAD 09:14
PROVIDERS: ATTEND Family Medicine
DX: M26.621 Arthralgia of right temporomandibular joint (principal)
CPT/HCPCS: 70110

== ENCOUNTER → 2018-06-17 | Outpatient (CLI) | payer BC ==
[2018-06-17 06:40] LABS: HEMATOCRIT 41.6 % (36.0-47.0); HEMOGLOBIN 14.6 g/dL (12.0-15.5); MEAN CORPUSCULAR HEMOGLOBIN 29.4 pg (27.0-33.4); MEAN CORPUSCULAR VOLUME 84 fl (80-97); PLATELET COUNT 302 10^3/uL (150-450); RED BLOOD COUNT 4.96 10^6/uL (3.72-5.28); RED CELL DISTRIBUTION WIDTH 14.1 % (11.5-14.0); WHITE BLOOD COUNT 7.8 10^3/uL (4.0-10.5)
[2018-06-17 07:00] LABS: ALANINE AMINOTRANSFERASE 48 U/L (9-52); ALBUMIN 5.2 g/dL (3.5-5.0); ALKALINE PHOSPHATASE 79 U/L (38-126); ANION GAP 16 (5-19); ASPARTATE AMINO TRANSFERASE 48 U/L (14-36); BILIRUBIN,DIRECT 0.3 mg/dL (0.0-0.4); BILIRUBIN,TOTAL 0.6 mg/dL (0.2-1.3); BLOOD UREA NITROGEN 13 mg/dL (7-20); CALCIUM 10.2 mg/dL (8.4-10.2); CARBON DIOXIDE 25 mmol/L (22-30); CHLORIDE 102 mmol/L (98-107); CHOLESTEROL 300.81 mg/dL (0-200); GLUCOSE 106 mg/dL (75-110); POTASSIUM 4.4 mmol/L (3.6-5.0); SODIUM 142.6 mmol/L (137-145); TOTAL PROTEIN 8.9 g/dL (6.3-8.2); TRIGLYCERIDES 263 mg/dL (<150)
[2018-06-17 07:13] LABS: DIRECT LDL 197 mg/dL (<100)
[2018-06-17 07:15] LABS: VLDL CHOLESTEROL 52.6 mg/dL (10-31)
[2018-06-18 08:45] LABS: THYROID PEROXIDASE (TPO) AB 11 IU/mL (0-34)
[2018-06-18 11:11] LABS: THYROGLOBULIN AB <1.0 IU/mL (0.0-0.9)
== END ==
LOC: LAB 05:50
PROVIDERS: ATTEND Internal Medicine Cardiovascular Disease
DX: R07.9 Chest pain, unspecified (principal)
CPT/HCPCS: 36415; 80048; 80061; 80076; 83735; 84443; 85027; 86376

== ENCOUNTER → 2018-06-30 | Outpatient (CLI) | payer BC, MEDICAID ==
--- NOTE | 2018-07-01 05:21 | RADIOLOGY REPORT ---
STRESS TEST REPORT PATIENT NAME: PRATIMA MOLINA ROOM#: DATE OF SERVICE: 06/30/2018 AGE: 32Y ORDER#: [id number] REFERRING MD: PIEDAD GAMBOA M.D. INDICATION: For assessment of chest pain, pressure. PROCEDURE PERFORMED: Rest/stress single isotope Cardiolite SPECT imaging with exercise stress and gated SPECT imaging. CLINICAL HISTORY: This is a 32-year-old female with no known coronary artery disease. Cardiac risk factors include hypertension, family history of coronary artery disease. Current symptomatology includes chest pains described as pressure, sharp, squeezing pain. REPORT The patient performed treadmill exercise using a standard Jovon protocol, completing 6 minutes, and an estimated workload of 7 METs. The resting heart rate was 100 bpm and increased to 173 bpm, which is 91% of the maximum predicted heart rate for age. The blood pressure response to exercise was normal. Resting blood pressure was 113/77 and increased to 132/77 at peak exercise. The patient did not develop any symptoms other than fatigue and shortness of breath. The resting EKG showed sinus tachycardia and normal ST segments. At peak exercise, no ST-segment changes were seen to suggest myocardial ischemia. Myocardial perfusion imaging was performed at rest 60 minutes following the injection of 12.84 mCi of Cardiolite. At peak exercise, the patient was injected with 37.1 mCi of Cardiolite. Gated poststress tomographic imaging was performed 15-30 minutes after stress. SUMMARY OF FINDINGS/IMPRESSION: The overall quality of the study is suboptimal. This is due to severe breast attenuation and the attenuation correction software was used. In addition, there was extra cardiac uptake superimposed on the inferior wall of the left ventricle. The left ventricular cavity is noted to be normal in size on both the rest and stress studies. There is no abnormal transient ischemic dilatation of the left ventricle. TID ratio is 1.00. SPECT images showed no evidence of reversible ischemia and no fixed perfusion defect. Gated SPECT imaging showed reduced motion contraction in the apex and the anterior wall. The left ventricular ejection fraction was calculated to be 50%. IMPRESSION: Myocardial perfusion imaging is normal. There is no evidence of exercise-induced reversible ischemia and no fixed perfusion defect. Overall left ventricular systolic function was low normal, with ejection fraction 50%, and there was reduced motion contraction in the apex and anterior wall. No prior study for comparison. INTERPRETING PHYSICIAN: PIEDAD GAMBOA M.D. /: [id number] TT: [id number] ID: [id number] /: [id number] TD: 1000 JOB: [id number] cc:Eliza TAM M.D. > MTDD
== END ==
LOC: RAD 06:44
PROVIDERS: ATTEND Internal Medicine Cardiovascular Disease
DX: R07.9 Chest pain, unspecified (principal)
CPT/HCPCS: 93017; 78452; A9500; Q9969

== ENCOUNTER 2018-10-05 07:09 | Day surgery (SDC) | payer BC, MEDICAID ==
[2018-09-30 11:07] LABS: APPEARANCE,URINE SLIGHTLY-CLOUDY; BILIRUBIN,URINE NEGATIVE (NEGATIVE); COLOR,URINE YELLOW; GLUCOSE, URINE NEGATIVE (NEGATIVE); KETONES,URINE NEGATIVE (NEGATIVE); LEUKOCYTE ESTERASE,URINE TRACE (NEGATIVE); NITRITE,URINE NEGATIVE (NEGATIVE); PROTEIN,URINE NEGATIVE (NEGATIVE); URINE SPECIFIC GRAVITY 1.019; UROBILINOGEN,URINE NEGATIVE mg/dL (<2.0)
[2018-09-30 11:49] LABS: HEMATOCRIT 40.2 % (36.0-47.0); HEMOGLOBIN 13.9 g/dL (12.0-15.5); MEAN CORPUSCULAR HEMOGLOBIN 28.7 pg (27.0-33.4); MEAN CORPUSCULAR HGB CONC 34.5 g/dL (32.0-36.0); MEAN CORPUSCULAR VOLUME 83 fl (80-97); PLATELET COUNT 433 10^3/uL (150-450); RED BLOOD COUNT 4.83 10^6/uL (3.72-5.28); RED CELL DISTRIBUTION WIDTH 13.8 % (11.5-14.0); WHITE BLOOD COUNT 8.8 10^3/uL (4.0-10.5)
--- NOTE | 2018-09-30 12:58 | EKG REPORT ---
SEVERITY:- NORMAL ECG - SINUS RHYTHM : Confirmed by: Kamlesh Medina MD 30-Sep-2018 12:57:31
[~2018-10-05 07:09] MED LIST: ACETAMINOPHEN 0 MG/0 ML RTUPB IV ONE; DEXAMETHASONE SOD PHOSPHATE INJ 4 MG/1 ML VIAL ONE; FENTANYL CITRATE INJ/PF 100 MCG/2 ML AMPUL ONE; LACTATED RINGERS 1000 ML IV PRN; LIDOCAINE 0.5% INJ-PF (5 MG/ML) 50 ML SDV SUBCUT PRN; MIDAZOLAM 2 MG/2 ML INJ ONE; ONDANSETRON HCL INJ/PF 4 MG/2 ML SDV ONE; PROPOFOL INJ 200 MG/20 ML VIAL IV ONE; SUGAMMADEX SODIUM 200 MG/2 ML SDV IV ONE
[2018-10-05] MEDS ORDERED: SUCCINYLCHOLINE CHLORIDE INJ 200 MG/10 ML VIAL ONE (08:59)
[2018-10-05] MEDS ORDERED: ROCURONIUM BROMIDE INJ 50 MG/5 ML VIAL IV ONE (08:59)
[2018-10-05] MEDS ORDERED: FENTANYL CITRATE INJ/PF 100 MCG/2 ML AMPUL IV PRN ×3 (10:53)
[2018-10-05] MEDS ORDERED: MORPHINE SULFATE 10 MG/ML INJ IV PRN (10:53)
[2018-10-05] MEDS ORDERED: DIPHENHYDRAMINE HCL 50 MG/ML VIAL IV PRN (10:53)
[2018-10-05] MEDS ORDERED: MEPERIDINE HCL/PF INJ 25 MG/1 ML DISP.SYRIN IV PRN (10:53)
[2018-10-05] MEDS ORDERED: ONDANSETRON HCL INJ/PF 4 MG/2 ML SDV IV PRN (10:53)
[2018-10-05] MEDS ORDERED: PROMETHAZINE HCL INJ 25 MG/1 ML VIAL IV PRN ×2 (10:53)
[2018-10-05] MEDS ORDERED: RINGERS SOLUTION,LACTATED 1,000 ML IV PRN (11:21)
[2018-10-05] MEDS ORDERED: OXYCODONE-ACETAMINOPHEN 5-325 MG TABLET PO PRN ×2 (11:21)
[2018-10-05] MEDS ORDERED: KETOROLAC TROMETHAMINE INJ/PF 30 MG/1 ML SDV IV PRN (11:21)
[2018-10-05] MEDS ORDERED: IBUPROFEN 800 MG TABLET PO PRN (11:21)
--- NOTE | 2018-10-05 11:24 | Operative Report ---
Operative Report DATE OF SURGERY: 10/05/18 PREOPERATIVE DIAGNOSIS: Patient desires laparoscopic tubal ligation with cautery POSTOPERATIVE DIAGNOSIS: Same OPERATION: Laparoscopic bilateral tubal ligation with Elsie cautery SURGEON: GIULIA BOURNE ANESTHESIA: GA TISSUE REMOVED OR ALTERED: Fallopian tubes COMPLICATIONS: None ESTIMATED BLOOD LOSS: None INTRAOPERATIVE FINDINGS: Normal uterus tubes and ovaries PROCEDURE: Patient was taken the OR and placed in supine position. General anesthesia was induced. She is placed in dorsolithotomy position using Rich stirrups. Her perineum vagina and abdomen were prepared and draped in sterile fashion. Her bladder was drained with a red rubber catheter. An incision was made at the umbilicus natural umbilical defect was identified and dilated with Maxine clamp allowing a blunt port to be placed laparoscopy confirmed appropriate placement. The abdomen was insufflated with CO2 gas. Each fallopian tube was identified followed out to its fimbriated end and then cauterized at the mid isthmic portion moving back toward the uterine cornu with 5 successive bites. At the end of the procedure photos were taken. Gas allowed to escape from the abdomen. The port and scope were removed at the same time. The fascia at the umbilicus was closed with 2-0 Vicryl stitch and skin closed with 4-0 undyed Vicryl stitch. All instruments removed from the vagina she was extubated and taken recovery room stable condition.
--- NOTE | 2018-10-05 11:28 | Discharge Summary ---
Discharge Summary (SDC) - Discharge Final Diagnosis: Encounter for laparoscopic tubal ligation Date of Surgery: 10/05/18 Discharge Date: 10/05/18 Condition: Good Treatment or Instructions: Home to rest follow-up in 2 week Prescriptions: Oxycodone HCl/Acetaminophen [Percocet 5-325 mg Tablet] 1 tab PO Q4HP PRN #20 tablet PRN Reason: Referrals: WING TERRAZAS MD [Primary Care Provider] - Discharge Diet: Regular Discharge Activity: Activity As Tolerated Report the Following to Your Physician Immediately: Fever over 101 Degrees, Unusual Bleeding
[2018-10-05] MEDS ORDERED: KETOROLAC TROMETHAMINE INJ/PF 30 MG/1 ML SDV ONE (11:39)
[2018-10-05] MEDS: FENTANYL CITRATE INJ/PF 100 MCG/2 ML AMPUL ONE ×2 (11:40→11:45)
[2018-10-05] MEDS ORDERED: OXYCODONE-ACETAMINOPHEN 5-325 MG TABLET ONE (12:32)
[2018-10-05 14:32] VITALS: BP 106/63
== END 2018-10-05 13:30 | disposition home or self-care (01) ==
LOC: OROUT 07:09
PROVIDERS: ATTEND Obstetrics & Gynecology
DX: Z30.2 Encounter for sterilization (principal); I10 Essential (primary) hypertension; Z79.899 Other long term (current) drug therapy; I20.9 Angina pectoris, unspecified; Z87.891 Personal history of nicotine dependence
CPT/HCPCS: 93005; 36415 ×2; 84703; 85027; 81005; 93010; 58670; J2250; J3490 ×2; J1100; J3010; J1885; J0330; J2405; J2704; 851; J0131

== ENCOUNTER → 2019-01-11 | Outpatient (CLI) | payer BC, MEDICAID ==
[2019-01-11 06:09] LABS: ALANINE AMINOTRANSFERASE 19 U/L (9-52); ALBUMIN 4.4 g/dL (3.5-5.0); ALKALINE PHOSPHATASE 77 U/L (38-126); ANION GAP 12 (5-19); ASPARTATE AMINO TRANSFERASE 17 U/L (14-36); BILIRUBIN,DIRECT 0.2 mg/dL (0.0-0.4); BILIRUBIN,TOTAL 0.3 mg/dL (0.2-1.3); BLOOD UREA NITROGEN 11 mg/dL (7-20); CALCIUM 9.8 mg/dL (8.4-10.2); CARBON DIOXIDE 27 mmol/L (22-30); CHLORIDE 104 mmol/L (98-107); CHOLESTEROL 184.03 mg/dL (0-200); GLUCOSE 89 mg/dL (75-110); PHOSPHORUS 4.9 mg/dL (2.5-4.5); POTASSIUM 3.8 mmol/L (3.6-5.0); SODIUM 143.4 mmol/L (137-145); TOTAL PROTEIN 7.4 g/dL (6.3-8.2); TRIGLYCERIDES 158 mg/dL (<150)
[2019-01-11 06:20] LABS: DIRECT LDL 106 mg/dL (<100)
[2019-01-11 06:23] LABS: VLDL CHOLESTEROL 31.6 mg/dL (10-31)
== END ==
LOC: LAB 05:19
PROVIDERS: ATTEND Internal Medicine Cardiovascular Disease
DX: E66.3 Overweight (principal); E78.00 Pure hypercholesterolemia, unspecified
CPT/HCPCS: 36415; 80061; 80069; 80076; 83735; 84443

== ENCOUNTER → 2019-02-23 | Outpatient (CLI) | payer BC ==
[2019-02-23 06:17] LABS: ALANINE AMINOTRANSFERASE 18 U/L (9-52); ALBUMIN 4.5 g/dL (3.5-5.0); ALKALINE PHOSPHATASE 72 U/L (38-126); ANION GAP 10 (5-19); ASPARTATE AMINO TRANSFERASE 18 U/L (14-36); BILIRUBIN,DIRECT 0.2 mg/dL (0.0-0.4); BILIRUBIN,TOTAL 0.3 mg/dL (0.2-1.3); BLOOD UREA NITROGEN 11 mg/dL (7-20); CALCIUM 9.7 mg/dL (8.4-10.2); CARBON DIOXIDE 25 mmol/L (22-30); CHLORIDE 105 mmol/L (98-107); CHOLESTEROL 208.31 mg/dL (0-200); GLUCOSE 97 mg/dL (75-110); SODIUM 139.5 mmol/L (137-145); TOTAL PROTEIN 7.7 g/dL (6.3-8.2); TRIGLYCERIDES 112 mg/dL (<150); URIC ACID 4.3 mg/dL (2.5-6.2)
[2019-02-23 06:28] LABS: DIRECT LDL 104 mg/dL (<100)
== END ==
LOC: LAB 05:29
PROVIDERS: ATTEND Internal Medicine Cardiovascular Disease
DX: E83.42 Hypomagnesemia (principal); I10 Essential (primary) hypertension; E78.5 Hyperlipidemia, unspecified; E05.90 Thyrotoxicosis, unspecified without thyrotoxic crisis or storm; E66.09 Other obesity due to excess calories; R07.9 Chest pain, unspecified
CPT/HCPCS: 36415; 80048; 80061; 80076; 82306; 82607; 83735; 84443; 84550; 86141

== ENCOUNTER 2019-06-01 08:27 | Emergency (ER) | payer BC, OTHER ==
[2019-06-01] MEDS ORDERED: OXYCODONE-ACETAMINOPHEN 5-325 MG TABLET PO ONE (08:57)
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
[2019-06-01] MEDS ORDERED: IBUPROFEN 800 MG TABLET PO ONE (10:50)
[2019-06-01] MEDS ORDERED: METHOCARBAMOL 500 MG TABLET PO ONE (10:50)
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
[2019-06-01 11:50] VITALS: BP 127/81
== END 2019-06-01 11:52 | disposition home or self-care (01) ==
LOC: ER 08:27
DX: S16.1XXA Strain of muscle, fascia and tendon at neck level, initial encounter (principal); S39.012A Strain of muscle, fascia and tendon of lower back, initial encounter; M79.652 Pain in left thigh; M54.9 Dorsalgia, unspecified; M54.2 Cervicalgia; M54.6 Pain in thoracic spine; V87.7XXA Person injured in collision between other specified motor vehicles (traffic), initial encounter; I10 Essential (primary) hypertension
CPT/HCPCS: 72070; 72110; 72125; 99284

== ENCOUNTER → 2019-09-16 | Outpatient (CLI) | payer BC ==
[2019-09-16 06:30] LABS: ALBUMIN 4.5 g/dL (3.5-5.0); ALKALINE PHOSPHATASE 78 U/L (38-126); ANION GAP 7 (5-19); ASPARTATE AMINO TRANSFERASE 24 U/L (14-36); BILIRUBIN,TOTAL 0.3 mg/dL (0.2-1.3); BLOOD UREA NITROGEN 15 mg/dL (7-20); CALCIUM 9.4 mg/dL (8.4-10.2); CARBON DIOXIDE 26 mmol/L (22-30); CHLORIDE 106 mmol/L (98-107); GLUCOSE 106 mg/dL (75-110); POTASSIUM 4.2 mmol/L (3.6-5.0); TOTAL PROTEIN 7.7 g/dL (6.3-8.2)
[2019-09-16 08:07] LABS: CHOLESTEROL 235.64 mg/dL (0-200); TRIGLYCERIDES 87 mg/dL (<150)
[2019-09-16 08:18] LABS: DIRECT LDL 144 mg/dL (<100)
== END ==
LOC: LAB 05:58
PROVIDERS: ATTEND Internal Medicine Cardiovascular Disease
DX: R07.9 Chest pain, unspecified (principal); E66.09 Other obesity due to excess calories; E78.5 Hyperlipidemia, unspecified
CPT/HCPCS: 36415; 80048; 80061; 80076; 83525; 84443; 86141

== ENCOUNTER 2020-04-01 14:35 | Emergency (ER) | payer BC ==
--- NOTE | 2020-04-01 14:51 | ER Document Report ---
ED Medical Screen (RME) - General Chief Complaint: Headache <24 hrs old Stated Complaint: BLOOD PRESSURE ISSUE/PALPATATIONS Time Seen by Provider: 04/01/20 14:44 Primary Care Provider: PIEDAD GAMBOA MD [Primary Care Provider] - Follow up as needed Mode of Arrival: Ambulatory Information source: Patient Notes: HPI; 34-year-old female past medical history significant for TIA and MIs presents emergency room with a sudden onset of a headache feeling anxious with questionable panic attack and palpitations that started around noon today. Also complains of chest pain with shortness of breath. She denies any recent travel however she does work at the [employer] still has daily exposure to positive COVID-19 patients. Denies any history of migraines. Denies any head trauma head injury. Patient states she took half of her daughter's migraine medicine without relief. Denies any nausea, vomiting, or diaphoresis. PE: Alert and oriented x3. Negative fast exam. PERRLA, EOMI. Lungs: Clear to auscultation without rales, rhonchi, wheezes. Heart: Tachycardic without murmurs, rubs, gallops. Patient very anxious appearing. I have greeted and performed a rapid initial assessment of this patient. A comprehensive ED assessment and evaluation of the patient, analysis of test results and completion of the medical decision making process will be conducted by additional ED providers. I have specifically instructed the patient or family members with the patient to immediately return to any nursing staff should anything change in the patient's condition or with their chief complaint. TRAVEL OUTSIDE OF THE [place] IN LAST 30 DAYS: No - Related Data Allergies/Adverse Reactions: No Known Allergies Allergy (Verified 04/01/20 14:41) Home Medications: sertraline, hctz, losartan Past Medical History - Social History Chew tobacco use (# tins/day): No Frequency of alcohol use: Social Drug Abuse: None - Past Medical History Cardiac Medical History: Reports: Hx Coronary Artery Disease - HIGH CHOLESTEROL, Hx Heart Attack, Hx Hypercholesterolemia, Hx Hypertension Pulmonary Medical History: Denies: Hx Asthma, Hx Bronchitis, Hx COPD, Hx Pneumonia Neurological Medical History: Denies: Hx Cerebrovascular Accident, Hx Seizures Renal/ Medical History: Denies: Hx Peritoneal Dialysis Musculoskeltal Medical History: Denies Hx Arthritis Past Surgical History: Reports: Hx Dilation and Curettage, Hx Gynecologic Surgery - d&c, Hx Tubal Ligation - Immunizations Hx Diphtheria, Pertussis, Tetanus Vaccination: Yes Physical Exam - Vital signs Vitals: Temp Pulse Resp BP Pulse Ox 97.6 F 68 14 177/102 H 100 04/01/20 14:42 04/01/20 14:42 04/01/20 14:42 04/01/20 14:42 04/01/20 14:42 Course - Vital Signs Vital signs: Temp Pulse Resp BP Pulse Ox 97.6 F 68 14 177/102 H 100 04/01/20 14:42 04/01/20 14:42 04/01/20 14:42 04/01/20 14:42 04/01/20 14:42 Doctor's Discharge - Discharge Referrals: PIEDAD GAMBOA MD [Primary Care Provider] - Follow up as needed
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
--- NOTE | 2020-04-01 15:15 | RADIOLOGY REPORT (SQ) ---
EXAM DESCRIPTION: CT HEAD WITHOUT IMAGES COMPLETED DATE/TIME: 04/01/2020 3:00 pm REASON FOR STUDY: headache COMPARISON: None. TECHNIQUE: Axial images acquired through the brain without intravenous contrast. Images reviewed wit h bone, brain and subdural windows. Images stored on PACS. All CT scanners at this facility use dose modulation, iterative reconstruction, and/or weight based d osing when appropriate to reduce radiation dose to as low as reasonably achievable (ALARA). [facility]: Dose Right [facility]: CareDose [facility]: Dose Right [facility]: Teradose 4D [facility]: [place] RADIATION DOSE: CT Rad equipment meets quality standard of care and radiation dose reduction techniq ues were employed. CTDIvol: 53.2 mGy. DLP: 884 mGy-cm.. LIMITATIONS: None. FINDINGS: VENTRICLES: Normal size and contour. CEREBRUM: No masses. No hemorrhage. No midline shift. Age appropriate white matter. No evidence for a cute infarction. CEREBELLUM: No masses. No hemorrhage. No alteration of density. No evidence for acute infarction. EXTRA-AXIAL SPACES: No fluid collections. ORBITS AND GLOBE: No intra- or extraconal masses. Normal contour of globe without masses. CALVARIUM: No fracture. PARANASAL SINUSES: No fluid or mucosal thickening. SOFT TISSUES: No mass or hematoma. OTHER: No other significant finding. IMPRESSION: NO ACUTE INTRACRANIAL FINDINGS. EVIDENCE OF ACUTE STROKE: NO. TECHNICAL DOCUMENTATION: JOB ID: [id number] Quality ID # [id number]: Final reports with documentation of one or more dose reduction techniques (e.g., Au tomated exposure control, adjustment of the mA and/or kV according to patient size, use of iterative reconstruction technique) 2010 [email or web address]- All Rights Reserved Reading location - IP/workstation name: [employer]
[2020-04-01] MEDS: METOCLOPRAMIDE HCL INJ/PF 10 MG/2 ML SDV IV ONE ×2 (15:19→15:25)
[2020-04-01] MEDS: DIPHENHYDRAMINE HCL 50 MG/ML VIAL IV ONE ×2 (15:19→15:25)
[2020-04-01] MEDS: RINGERS SOLUTION,LACTATED 1,000 ML IV ONE ×2 (15:20→15:25)
[2020-04-01 15:34] LABS: ABSOLUTE LYMPHOCYTES (AUTO) 2.6 10^3/uL (0.5-4.7); ABSOLUTE MONOCYTES (AUTO) 0.5 10^3/uL (0.1-1.4); ABSOLUTE NEUT (AUTO) 2.8 10^3/uL (1.7-8.2); BASOPHILS % (AUTO) 0.5 % (0-2); EOSINOPHILS % (AUTO) 0.7 % (0-6); HEMATOCRIT 38.8 % (36.0-47.0); HEMOGLOBIN 13.1 g/dL (12.0-15.5); LYMPHOCYTES % (AUTO) 43.4 % (13-45); MEAN CORPUSCULAR HEMOGLOBIN 27.6 pg (27.0-33.4); MEAN CORPUSCULAR HGB CONC 33.8 g/dL (32.0-36.0); MEAN CORPUSCULAR VOLUME 82 fl (80-97); MONOCYTES % (AUTO) 8.8 % (3-13); PLATELET COUNT 301 10^3/uL (150-450); RED BLOOD COUNT 4.74 10^6/uL (3.72-5.28); RED CELL DISTRIBUTION WIDTH 14.8 % (11.5-14.0); SEGMENTED NEUTROPHILS % (AUTO) 46.6 % (42-78); TOTAL CELLS COUNTED % (AUTO) 100 %; WHITE BLOOD COUNT 6.1 10^3/uL (4.0-10.5)
[2020-04-01] MEDS ORDERED: LABETALOL HCL INJ 20 MG/4 ML DISP.SYRIN IV ONE (15:34)
[2020-04-01] MEDS ORDERED: LORAZEPAM INJ 2 MG/1 ML VIAL IV ONE (15:35)
[2020-04-01 15:54] LABS: ALBUMIN 4.5 g/dL (3.5-5.0); ALKALINE PHOSPHATASE 96 U/L (38-126); ANION GAP 9 (5-19); ASPARTATE AMINO TRANSFERASE 27 U/L (14-36); BILIRUBIN,DIRECT 0.2 mg/dL (0.0-0.4); BILIRUBIN,TOTAL 0.4 mg/dL (0.2-1.3); BLOOD UREA NITROGEN 13 mg/dL (7-20); CALCIUM 9.8 mg/dL (8.4-10.2); CARBON DIOXIDE 24 mmol/L (22-30); CHLORIDE 107 mmol/L (98-107); CREATINE KINASE 97 U/L (30-135); GLUCOSE 100 mg/dL (75-110); TOTAL PROTEIN 8.1 g/dL (6.3-8.2)
[2020-04-01 16:04] LABS: CREATINE KINASE MB 0.31 ng/mL (<4.55)
[2020-04-01 16:06] LABS: TROPONIN I < 0.012 ng/mL
[2020-04-01 16:33] LABS: APPEARANCE,URINE CLEAR; BILIRUBIN,URINE NEGATIVE (NEGATIVE); COLOR,URINE STRAW; GLUCOSE, URINE NEGATIVE (NEGATIVE); KETONES,URINE NEGATIVE (NEGATIVE); PROTEIN,URINE NEGATIVE (NEGATIVE); URINE SPECIFIC GRAVITY 1.014; UROBILINOGEN,URINE NEGATIVE mg/dL (<2.0)
[2020-04-01 16:41] LABS: URINE AMPHETAMINES SCREEN NEGATIVE; URINE BARBITURATES SCREEN NEGATIVE; URINE BENZODIAZEPINES SCREEN NEGATIVE; URINE COCAINE SCREEN NEGATIVE; URINE MARIJUANA (THC) SCREEN NEGATIVE; URINE METHADONE SCREEN NEGATIVE; URINE PHENCYCLIDINE SCREEN NEGATIVE
--- NOTE | 2020-04-01 16:57 | ER Document Report ---
ED Blood Pressure Problem - General Chief Complaint: Headache <24 hrs old Stated Complaint: BLOOD PRESSURE ISSUE/PALPATATIONS Time Seen by Provider: 04/01/20 14:44 Primary Care Provider: PIEDAD GAMBOA MD [Primary Care Provider] - Follow up as needed Mode of Arrival: Ambulatory Notes: This 34-year-old woman presents to the emergency department with complaint of headache, dizziness, confusion and visual changes. She has a history of hypertension and her blood pressure is noted to be elevated. She states that she has had similar episodes in the past and was diagnosed as having a TIA in the past during an episode of elevated blood pressure. She also complained of chest pressure and tightness with associated shortness of breath. She is presently taking losartan and [employer] TRAVEL OUTSIDE OF THE [place] IN LAST 30 DAYS: No - Related Data Allergies/Adverse Reactions: No Known Allergies Allergy (Verified 04/01/20 14:41) Home Medications: sertraline, hctz, losartan Past Medical History - General Information source: Patient - Social History Smoking Status: Former Smoker Chew tobacco use (# tins/day): No Frequency of alcohol use: Social Drug Abuse: None Family History: Reviewed & Not Pertinent Patient has homicidal ideation: No - Past Medical History Cardiac Medical History: Reports: Hx Coronary Artery Disease - HIGH CHOLESTEROL, Hx Heart Attack, Hx Hypercholesterolemia, Hx Hypertension Pulmonary Medical History: Denies: Hx Asthma, Hx Bronchitis, Hx COPD, Hx Pneumonia Neurological Medical History: Denies: Hx Cerebrovascular Accident, Hx Seizures Renal/ Medical History: Denies: Hx Peritoneal Dialysis Musculoskeletal Medical History: Denies Hx Arthritis Past Surgical History: Reports: Hx Dilation and Curettage, Hx Gynecologic Surgery - d&c, Hx Tubal Ligation - Immunizations Hx Diphtheria, Pertussis, Tetanus Vaccination: Yes Review of Systems - Review of Systems Notes: Constitutional: Negative for fever. HENT: + Blurred vision Eyes: Negative for visual changes. Cardiovascular: +chest pain. Respiratory: +shortness of breath. Gastrointestinal: Negative for abdominal pain, vomiting or diarrhea. Genitourinary: Negative for dysuria. Musculoskeletal: Negative for back pain. Skin: Negative for rash. Neurological: +headaches, weakness or numbness. 10 point ROS negative except as marked above and in HPI. Physical Exam - Vital signs Vitals: Temp Pulse Resp BP Pulse Ox 97.6 F 68 14 177/102 H 100 04/01/20 14:42 04/01/20 14:42 04/01/20 14:42 04/01/20 14:42 04/01/20 14:42 - Notes Notes: PHYSICAL EXAMINATION: Physical Exam: General: Well-nourished well-developed 34-year-old woman in no acute distress HEENT: NC/AT, pupils equal round and reactive to light, MM moist,nares clear, oropharynx clear, airway patent Neck: supple, no adenopathy, no masses. Good range of motion Lungs: clear, no wheezing, no rales no rhonchi CVS: Regular rate and rhythm no murmur gallop or rub Abdomen: Soft, active, nontender, no masses, no hepatosplenomegaly Ext: No edema, clubbing or cyanosis. Neuro: Alert and responsive, moving all 4 extremities on command, cranial nerves intact, no focal findings Skin: Intact no open lesions, no rash PSYCH: Normal mood, normal affect. Course - Re-evaluation Re-evalutation: 04/01/20 16:56 Rechecking on the patient found to have a blood pressure of 120/86. All of her symptoms have resolved. I reviewed the labs and a CT scan x-ray chest with radiology and EKG. None of the studies revolve abnormalities. I explained to the patient that her hypertensive urgency and may be related to stress reaction. Apparently there was a recent loss in her family and she is dealing with the . I have introduced to her relaxation techniques. Have also asked that she follow-up with her primary care doctor regarding her blood pressure medication and the need for an intervention with blood pressure medications if she continues to have similar episodes. - Vital Signs Vital signs: Temp Pulse Resp BP Pulse Ox 97.6 F 68 22 H 127/77 H 99 04/01/20 14:42 04/01/20 14:42 04/01/20 16:00 04/01/20 16:01 04/01/20 16:01 - Laboratory Result Diagrams: 04/01/20 15:20 04/01/20 15:20 Laboratory results interpreted by me: 04/01/20 15:20 RDW 14.8 H 04/01/20 16:54 I have reviewed laboratory data and used this information for the treatment decisions regarding the patient. - Diagnostic Test Radiology reviewed: Image reviewed, Reports reviewed Radiology results interpreted by me: 04/01/20 16:54 Chest x-ray: No acute cardiopulmonary findings. CT head noncontrast: No acute intracranial findings, no CVA. - EKG Interpretation by Mi Rate: Normal - EKG interpreted by Dr. Martinez: Normal sinus rhythm, rate 80, QT interval normal, normal axis, no acute ST or T wave abnormalities, no ischemic findings, there is no prior EKG to compare. Discharge - Discharge Clinical Impression: Hypertensive urgency, Stress reaction Condition: Good Disposition: HOME, SELF-CARE Instructions: High Blood Pressure ([facility]) Additional Instructions: You were seen in the emergency department today with hypertension and a reaction to your blood pressure which included headache, dizziness, blurred vision, chest discomfort and symptoms resolve when your blood pressure came down. Since your pressure did not require an intervention in the emergency department the possibility of a stress reaction is highly likely. Please begin some stress reduction activities, please follow-up with your primary care doctor regarding hypertension and an intervention that might be done if your pressure is running on the high side. If your symptoms recur or if you have other concerns you may return to the emergency department for further evaluation and treatment HOME CARE INSTRUCTIONS & INFORMATION: Thank you for choosing us for your medical needs. We hope you're satisfied with the care you received. After you leave, you must properly care for your problem and, at the same time, observe its progress. Any condition can change. Some illnesses can change rapidly over hours or days. If your condition worsens, return to the Emergency Department or see your physician promptly. ABOUT YOUR X-RAYS AND EKG'S: If you had an EKG or X-rays taken, they have been read by the Emergency Physician. The X-rays and EKG's will also be read by a Radiologist or [facility] within 24 hours. If discrepancies are noted, you will be notified by telephone. Please be certain the ED has a correct telephone number & address where you can be reached. Also, realize that some fractures or abnormalities do not show up on initial X-rays. If your symptoms continue, see your physician. ABOUT YOUR LABORATORY TEST: If you had laboratory tests, the results have been reviewed by the Emergency Physician. Some test results (for example cultures) may not be available for several days. You will be contacted if any test result shows you need additional treatment. Please be certain the ED has a correct telephone number and address where you can be reached. ABOUT YOUR MEDICATIONS: You will receive instructions on how to take your medicine on the prescription label you receive. Additional information may be provided by the Pharmacy. If you have questions afterwards, call the ED for clarification or further instructions. Some prescribed medications may cause drowsiness. Do not perform tasks such as driving a car or operating machinery without consulting your Pharmacist. If you feel you need a refill of pain medication, your condition will need re-evaluation. Please do not call for a refill of any medication. ABOUT YOUR SIGNATURE: Signature of this document acknowledges to followin. Understanding that you received emergency treatment and that you may be released before al medical problems are known or treated. Please be certain the ED has a correct phone number & address where you can be reached. 2. Acknowledgement that you will arrange for follow-up care as recommended. 3. Authorization for the Emergency Physician to provide information to your follow-up Physician in order to maximize your care. AT ANY TIME, IF YOUR SYMPTOMS CHANGE SIGNIFICANTLY OR WORSEN OR YOU DEVELOP NEW SYMPTOMS, RETURN TO THE EMERGENCY DEPARTMENT IMMEDIATELY FOR RE-EVALUATION. OUR GOAL IS TO PROVIDE EXCELLENT MEDICAL CARE! WE HOPE THAT WE HAVE MET YOUR EXPECTATIONS DURING YOUR EMERGENCY DEPARTMENT VISIT AND THAT YOU FEEL YOU HAVE RECEIVED EXCELLENT CARE! Referrals: PIEDAD GAMBOA MD [Primary Care Provider] - Follow up as needed
[2020-04-02 01:37] VITALS: BP 148/97
--- NOTE | 2020-04-02 20:23 | EKG REPORT ---
SEVERITY:- NORMAL ECG - SINUS RHYTHM : Confirmed by: Za Cobian 02-Apr-2020 20:22:46
== END 2020-04-01 17:40 | disposition home or self-care (01) ==
LOC: ER 14:35
DX: I16.0 Hypertensive urgency (principal); I10 Essential (primary) hypertension; F43.9 Reaction to severe stress, unspecified; R51 Headache; R42 Dizziness and giddiness; R41.0 Disorientation, unspecified; R07.89 Other chest pain; R06.02 Shortness of breath; I25.10 Atherosclerotic heart disease of native coronary artery without angina pectoris; I25.2 Old myocardial infarction; Z79.899 Other long term (current) drug therapy; Z87.891 Personal history of nicotine dependence; H53.8 Other visual disturbances; Z20.828 Contact with and (suspected) exposure to other viral communicable diseases
CPT/HCPCS: 36415; 70450; 71045; 80053; 80307; 81001; 82550; 82553; 82962; 84484; 84703; 85025; 93005; 93010; 99285; J1200; J2765; J7120

== ENCOUNTER → 2020-07-14 | Outpatient (CLI) | payer BC ==
[2020-07-14 09:18] LABS: ALBUMIN 4.7 g/dL (3.5-5.0); ALKALINE PHOSPHATASE 70 U/L (38-126); ANION GAP 10 (5-19); ASPARTATE AMINO TRANSFERASE 21 U/L (14-36); BILIRUBIN,DIRECT 0.1 mg/dL (0.0-0.4); BILIRUBIN,TOTAL 0.5 mg/dL (0.2-1.3); BLOOD UREA NITROGEN 8 mg/dL (7-20); CALCIUM 9.7 mg/dL (8.4-10.2); CARBON DIOXIDE 24 mmol/L (22-30); CHLORIDE 104 mmol/L (98-107); CHOLESTEROL 203.27 mg/dL (0-200); GLUCOSE 109 mg/dL (75-110); POTASSIUM 4.1 mmol/L (3.6-5.0); TOTAL PROTEIN 7.8 g/dL (6.3-8.2); TRIGLYCERIDES 104 mg/dL (<150)
[2020-07-14 09:29] LABS: DIRECT LDL 122 mg/dL (<100)
== END ==
LOC: OD 08:02
PROVIDERS: ATTEND Internal Medicine Cardiovascular Disease
DX: E78.5 Hyperlipidemia, unspecified (principal); E83.42 Hypomagnesemia; I10 Essential (primary) hypertension; R00.2 Palpitations; E66.09 Other obesity due to excess calories; Z79.899 Other long term (current) drug therapy
CPT/HCPCS: 36415; 80048; 80061; 80076; 83036; 83525; 83735

== ENCOUNTER → 2020-09-05 | Outpatient (CLI) | payer BC ==
[~2020-09-05] MED LIST changes: -ACETAMINOPHEN 0 MG/0 ML RTUPB IV ONE; +COVID-19 VACCINE (PFIZER)/PF 30 MCG/0.3 ML VIAL IM ONE; -DEXAMETHASONE SOD PHOSPHATE INJ 4 MG/1 ML VIAL ONE; +EPINEPHRINE INJ/PF 1 MG/1 ML AMPULE IM PRN; -FENTANYL CITRATE INJ/PF 100 MCG/2 ML AMPUL ONE; -LACTATED RINGERS 1000 ML IV PRN; -LIDOCAINE 0.5% INJ-PF (5 MG/ML) 50 ML SDV SUBCUT PRN; -MIDAZOLAM 2 MG/2 ML INJ ONE; -ONDANSETRON HCL INJ/PF 4 MG/2 ML SDV ONE; -PROPOFOL INJ 200 MG/20 ML VIAL IV ONE; -SUGAMMADEX SODIUM 200 MG/2 ML SDV IV ONE
== END ==
LOC: EMPHEALTH 07:28
PROVIDERS: ATTEND Internal Medicine
DX: Z23 Encounter for immunization (principal)
CPT/HCPCS: 91300